=== PATIENT | male | born 1950 | race Caucasian/White ===

== ENCOUNTER 2016-10-07 09:15 | Emergency (ER) | payer MEDICARE, BC ==
--- NOTE | 2016-10-07 10:22 | RAD ---
INDICATION: Right hand pain and swelling. TECHNIQUE: 2 views of the right hand were obtained. FINDINGS: There is diffuse soft tissue swelling which is most prominent along the dorsal aspect of the hand at the level of the metacarpals. There is also soft tissue swelling in the fingers. The bones are normal alignment. No fracture is seen. There is mild to moderate osteoarthritic change in the carpal metacarpal, proximal and distal interphalangeal joints. IMPRESSION: SOFT TISSUE SWELLING.
[2016-10-07 11:33] VITALS: BP 137/80
--- NOTE | 2016-10-07 11:38 | RAD ---
INDICATION: Pain and swelling. COMPARISON: None TECHNIQUE: Duplex interrogation of the right upperextremity was performed. FINDINGS: Deep veins: The visualized jugular, visualized subclavian, axillary, brachial, basilic, cephalic, radial, and ulnar veins are patent. There is normal compressibility, augmentation, and phasic flow. Superficial veins: There are no findings of superficial thrombophlebitis. Soft tissues:There are no soft tissue abnormalities. IMPRESSION: Normal examination. No evidence of deep venous thrombosis
--- NOTE | 2016-10-07 12:40 | UC ---
kareem Smiley Timothy, scribed for Roderick Harrison MD on 10/07/16 at 0949 . Upper Extremity HPI - HPI Summary HPI Summary: Scot Garzon Jr. is a 66 yo male presenting to [facility] with 3/10 RUE hand pain and swelling since last night, denying any trauma. Pt notes Hx of arthritis, but states he has never experienced anything like this before. He is right- handed. He states last night he was unable to bend any of his fingers, and was woken up by the pain. He notes pain was worse last night. He denies any fever, chills, or malaise. He denies any insect bites to his knowledge. He notes he was doing yard work in the past 3 days, trimming bushes for one hour on Friday with a lachelle requiring a squeezing motion. he notes his pain is somewhat alleviated with elevation, and worse without elevation. His MHx includes DVT, gout, arthritis, HTN, HLD, tobacco use. - History of Current Complaint Stated Complaint: RIGHT HAND SWELLING/PAIN Time Seen by Provider: 10/07/16 09:49 Hx Obtained From: Patient Onset/Duration: Sudden Onset, Lasting Hours, Still Present Severity Initially: Moderate Severity Currently: Moderate Pain Intensity: 5 Pain Scale Used: 0-10 Numeric Location Of Pain: Is Discrete @ - RUE hand Character: Aching Associated Signs And Symptoms: Positive: Swelling - Allergies/Home Medications Allergies/Adverse Reactions: Allergies Allergy/AdvReac Type Severity Reaction Status Date / Time Sulfur Allergy Hives Verified 09/27/16 12:25 PMH/Surg Hx/FS Hx/Imm Hx - Additional Past Medical History Additional PMH: gout, arthritis Cardiovascular History: Hypertension, Deep Vein Thrombosis, Other Other Cardiovascular History: HLD - Surgical History Surgical History: None - Family History Known Family History: Positive: Cardiac Disease, Diabetes - Social History Alcohol Use: Weekly Substance Use Type: None Smoking Status (MU): Light Every Day Tobacco Smoker Type: Cigars Amount Used/How Often: 3 cigars per day Household Exposure Type: Cigars Review of Systems Constitutional: Negative Skin: Negative Eyes: Negative ENT: Negative Respiratory: Negative Cardiovascular: Negative Gastrointestinal: Negative Genitourinary: Negative Motor: Negative Neurovascular: Negative Musculoskeletal: Other: - pain and swelling in RUE hand Neurological: Negative Psychological: Negative All Other Systems Reviewed And Are Negative: Yes Physical Exam Triage Information Reviewed: Yes Vital Signs: Initial Vital Signs Temp 98.3 F 10/07/16 09:30 Pulse 73 10/07/16 09:30 Resp 20 10/07/16 09:30 BP 138/76 10/07/16 09:30 Pulse Ox 97 10/07/16 09:30 Vital Signs Reviewed: Yes ENT: Positive: Normal ENT inspection Neck: Positive: Supple, Nontender Respiratory: Positive: Chest non-tender, Lungs clear, Normal breath sounds Cardiovascular: Positive: RRR, No Murmur, Pulses Normal, Brisk Capillary Refill Musculoskeletal: Positive: Edema @ - diffuse to the right hand only which includes palm, dorsum and fingers. There is no increased warmth to the right hand. color appears symmetric to the left hand. he has good capillary refill and strong radial pules. He has no bruising. His ability to make fist with right hand diminished due to swelling. Diagnostics - Radiology RUE hand XR Xray Interpretation: No Acute Changes - IMPRESSION: SOFT TISSUE SWELLING. Radiology Interpretation Completed By: Radiologist RUE hand US Xray Interpretation: No Acute Changes - IMPRESSION: Normal examination. No evidence of deep venous thrombosis Radiology Interpretation Completed By: Radiologist Re-Evaluation - Re-Evaluation First Eval Re-Evaluation Time: 11:47 Change: Unchanged Comment: Discussed imaging results with Pt. Answered questions posed by Pt to best of ability. Upper Extremity Course/Dx - Course Course Of Treatment: Scot Garzon Jr. is a 66 yo male presenting to [facility] with 5/10 pain in his RUE hand since alst night, denying any recent trauma but noting Hx of arthritis and gout. Pt medication list reviewed this visit. His RUE XR suggested soft tissue swelling. His RUE US suggests no DVT. After clinical examination and review of his imaging studies he will be discharged home with appropriate instructions and follow up. Answered questions posed by Pt to best of ability. He has no DVT. He has some diffuse swelling of the hand without cellulitis or increased warmth. I suspect that with the work he was doing with his hands that he oversued the hand and has STS from overuse/ strain. recommend rest, and if swelling worse or anything changes he can follow up with hand dr Dc as referred to. - Differential Dx/Diagnosis Differential Diagnosis/HQI/PQRI: Arthritis, Other - gout Provider Diagnoses: right hand strain Discharge - Discharge Plan Condition: Stable Disposition: HOME Patient Education Materials: Muscle Strain (ED), Edema (ED) Referrals: Bob Floyd MD [Primary Care Provider] - 2 Days Lg Dc MD [Medical Doctor] - If Needed Additional Instructions: Please follow up with your primary care physician regarding your visit to urgent care today, and the orthopedist provided as necessary. Return to urgent care or the emergency department with any new or recurring symptoms. The documentation as recorded by the kareem garg Timothy accurately reflects the service I personally performed and the decisions made by , Roderick Harrison MD.
== END 2016-10-07 11:56 | disposition home or self-care (01) ==
LOC: UCEAST 09:15
DX: S66.911A Strain of unspecified muscle, fascia and tendon at wrist and hand level, right hand, initial encounter (principal); X50.0XXA Overexertion from strenuous movement or load, initial encounter; X50.3XXA Overexertion from repetitive movements, initial encounter; Y93.H2 Activity, gardening and landscaping; Y92.9 Unspecified place or not applicable; Y99.9 Unspecified external cause status; M10.9 Gout, unspecified; I10 Essential (primary) hypertension; Z86.718 Personal history of other venous thrombosis and embolism; E78.5 Hyperlipidemia, unspecified; Z72.0 Tobacco use
CPT/HCPCS: 99212; G0463

== ENCOUNTER 2018-01-21 13:01 | Inpatient (IN) | payer MEDICARE, OTHER ==
[2018-01-21] MEDS ORDERED: NS 0.9% 1000 ML* 1,000 ML IV ONE ×2 (17:50→19:00)
[2018-01-21] MEDS ORDERED: Ondansetron INJ* 2 MG/ML VIAL IV ONE (17:50)
[2018-01-21] MEDS ORDERED: Morphine VIAL* 10 MG/ML 1 ML VIAL IV ONE (17:53)
--- NOTE | 2018-01-21 17:55 | ED ---
Abdominal Pain/Male - HPI Summary HPI Summary: This patient is a 67 year old M presenting to ED with a chief complaint of abdominal pain since 2100 yesterday night. The CC is described as intermittent and sharp, starting off as heartburn. The patient rates the pain 1/10 in severity currently. Symptoms aggravated by nothing. Symptoms alleviated by nothing. Patient reports N/V/D, indigestion, and decreased appetite. Patient denies CP and palpitation. The patient is on chemo for spots on spine. PMHx of multiple myeloma, afib, and blood clot. The patient is not on blood thinners. - History of Current Complaint Chief Complaint: EDNauseaVomitDiarrh Stated Complaint: ABD PAIN Time Seen by Provider: 01/21/18 17:36 Hx Obtained From: Patient Onset/Duration: Sudden Onset, Lasting Days - since 2099 last night, Still Present Timing: Intermittent, Lasting Days Severity Currently: Mild Pain Intensity: 1 Pain Scale Used: 0-10 Numeric Character: Sharp Aggravating Factor(s): Nothing Alleviating Factor(s): Nothing Associated Signs And Symptoms: Positive: Decreased Appetite, Nausea, Vomiting, Diarrhea, Other - indigestion; denies palpitations. Negative: Chest Pain - Allergies/Home Medications Allergies/Adverse Reactions: Allergies Allergy/AdvReac Type Severity Reaction Status Date / Time Sulfa (Sulfonamide Allergy Hives Verified 01/21/18 13:19 Antibiotics) sulfur dioxide Allergy Hives Verified 01/21/18 13:19 Home Medications: Home Medications Allopurinol TAB* [Zyloprim 300 MG TAB*] 300 mg PO DAILY 01/21/18 [History Confirmed 01/21/18] Dexamethasone TAB* [Decadron TAB*] 40 mg PO WEEKLY 01/21/18 [History Confirmed 01/21/18] Lenalidomide (NF) [Revlimid (NF)] 25 mg PO DAILY 01/21/18 [History Confirmed ] Lisinopril TAB* [Prinivil TAB*] 40 mg PO DAILY 01/21/18 [History Confirmed 01/21] Velcade Injection 1 applic IV Q14D 01/21/18 [History Confirmed 01/21/18] amLODIPine TAB* [Norvasc 5 mg TAB*] 2.5 mg PO DAILY 01/21/18 [History Confirmed 01/21/18] PMH/Surg Hx/FS Hx/Imm Hx Endocrine/Hematology History: Denies: Hx Diabetes Cardiovascular History: Reports: Hx Hypertension Denies: Hx Pacemaker/ICD History: Denies: Hx Renal Disease Sensory History: Denies: Hx Hearing Aid Psychiatric History: Denies: Hx Panic Disorder Infectious Disease History: No Infectious Disease History: Denies: Traveled Outside the [place] in Last 30 Days - Family History Known Family History: Positive: Cardiac Disease, Diabetes - Social History Alcohol Use: Weekly Alcohol Amount: every other day Substance Use Type: Reports: None Smoking Status (MU): Light Every Day Tobacco Smoker Type: Cigars Amount Used/How Often: 3 cigars per day Review of Systems Negative: Palpitations, Chest Pain Positive: Abdominal Pain, Vomiting, Diarrhea, Nausea, Other - decreased appetite and indigestion All Other Systems Reviewed And Are Negative: Yes Physical Exam - Summary Physical Exam Summary: GENERAL: Patient is a well-developed and nourished M who is lying comfortable in the stretcher. Patient is not in any acute respiratory distress. HEAD AND FACE: Normocephalic EYES: PERRLA, EOMI x 2. EARS: Hearing grossly intact. MOUTH: Oropharynx within normal limits. NECK: Supple, trachea is midline, no adenopathy, no JVD, no carotid bruit. CHEST: Symmetric, no tenderness at palpation LUNGS: Clear to auscultation bilaterally. No wheezing or crackles. CVS: Tachycardic, regular rhythm, S1 and S2 present, no murmurs or gallops appreciated. ABDOMEN: Soft, non-tender. Bowel sounds are normal. No abdominal abnormal pulsations. EXTREMITIES: Full ROM in all major joints, no cyanosis or clubbing. Bilateral pedal edema. NEURO: Alert and oriented x 3. No acute neurological deficits. Speech is normal and follows commands. SKIN: Dry and warm Triage Information Reviewed: Yes Vital Signs On Initial Exam: Initial Vitals Temp Pulse Resp BP Pulse Ox 98.4 F 77 20 107/69 95 01/21/18 13:16 01/21/18 13:16 01/21/18 13:16 01/21/18 13:16 01/21/18 13:16 Vital Signs Reviewed: Yes Diagnostics - Vital Signs Vital Signs Temp Pulse Resp BP Pulse Ox 01/21/18 17:20 88 22 101/72 99 01/21/18 17:00 114 24 97 01/21/18 16:50 94 27 96/71 98 01/21/18 16:21 107 24 138/54 96 01/21/18 16:18 105 99 01/21/18 13:16 98.4 F 77 20 107/69 95 - Laboratory Result Diagrams: 01/22/18 05:40 01/22/18 05:40 Lab Statement: Any lab studies that have been ordered have been reviewed, and results considered in the medical decision making process. - EKG 1750 Cardiac Rate: Other Rate - afib with RVR EKG Rhythm: Atrial Fibrillation - with RVR Ectopy: PVCs - occasional Re-Evaluation - Re-Evaluation First Eval Re-Evaluation Time: 18:46 Comment: The patient's BP dropped, but he feels fine. He was just given 5mg of Morphine. Patient reports he does not feel light-headed/dizzy. No hx of CHF. Abdominal Pain Fem Course/Dx - Course Assessment/Plan: This patient is a 67 year old M presenting to ED with a chief complaint of abdominal pain since 2100 yesterday night. In the ED course, the patient was given fluids, morphine, and zofran. This patient will be signed out to Dr. Pratt, pending dispo, awaiting CT abd/pel. - Diagnoses Provider Diagnoses: Multiple myeloma, Hypotension, Atrial fibrillation with rapid ventricular response, Chronic renal failure, Gastritis, Elevated troponin Discharge - Sign-Out/Discharge Documenting (check all that apply): Sign-Out Patient Signing out patient TO: Addison Pratt Receiving patient FROM: Dkasha Harden - Discharge Plan Condition: Stable Disposition: ADMITTED TO [facility] - Billing Disposition and Condition Condition: STABLE Disposition: Admitted to [facility] - Attestation Statements Document Initiated by Scribe: Yes Documenting Scribe: Angel Campos Provider For Whom Scribe is Documenting (Include Credential): Daksha Harden MD Scribe Attestation: Angel Smiley, scribed for Daksha Harden MD on 01/23/18 at 0459. Scribe Documentation Reviewed: Yes Provider Attestation: The documentation as recorded by the Angel garg accurately reflects the service I personally performed and the decisions made by me, Daksha Harden MD
[2018-01-21] MEDS ORDERED: Morphine INJ* 4 MG/ML 1 ML SYRINGE (NEW SYRINGE VERSION) ONE (18:12)
[2018-01-21 18:22] LABS: Hematocrit 36 % (42-52); Hemoglobin 11.7 g/dl (14.0-18.0); Mean Corpuscular HGB Conc 33 g/dl (31-36); Mean Corpuscular Hemoglobin 33 pg (27-31); Mean Corpuscular Volume 101 fL (80-94); Mean Platelet Volume 10.4 um3 (7.4-10.4); Platelet Count 29 10^3/ul (150-450); Red Blood Count 3.53 10^6/ul (4.00-5.40); Red Cell Distribution Width 24 % (10.5-15)
[2018-01-21 18:23] LABS: INR 1.14 (0.77-1.02)
[2018-01-21] MEDS ORDERED: Morphine INJ* 4 MG/ML 1 ML SYRINGE (NEW SYRINGE VERSION) IV ONE (18:29)
[2018-01-21 18:35] LABS: EGFR Non-African American 34.3 (>60)
[2018-01-21 19:00] LABS: ABS Basophils 0 10^3/ul (0-0.2); ABS Eosinophils 0 10^3/ul (0-0.6); ABS Lymphocytes 0.3 10^3/ul (1.0-4.8); ABS Monocytes 1.2 10^3/ul (0-0.8); ABS Neutrophils 0.5 10^3/ul (1.5-7.7)
[2018-01-21 19:04] LABS: ABS Basophils 0 10^3/ul (0-0.2); ABS Neutrophils 0.6 10^3/ul (1.5-7.7); Monocytes % 30 % (0-7)
[2018-01-21] MEDS ORDERED: Iodixanol* (CONTRAST) 320 MG/ML 100 ML SDV IV ONE (19:40)
--- NOTE | 2018-01-21 20:13 | RAD ---
EXAM: CT Abdomen and Pelvis With Intravenous Contrast EXAM DATE/TIME: 01/21/2018 7:50 PM CLINICAL HISTORY: 67 years old, male; Pain; Abdominal pain; Localized; Upper TECHNIQUE: Axial computed tomography images of the abdomen and pelvis with intravenous contrast. All CT scans at this facility use at least one of these dose optimization techniques: automated exposure control; mA and/or kV adjustment per patient size (includes targeted exams where dose is matched to clinical indication); or iterative reconstruction. Coronal and sagittal reformatted images were created and reviewed. CONTRAST: 124 ml of VISIPAQUE 320 administered intravenously. COMPARISON: A/P W CT ABD/PEL W 04/04/2014 8:32 AM FINDINGS: Lower thorax: The visualized portions of the lung bases are normal. ABDOMEN: Liver: Normal. No mass. Gallbladder and bile ducts: Normal. No calcified stones. No ductal dilation. Pancreas: Normal. No ductal dilation. Spleen: Normal. No splenomegaly. Adrenals: Soft tissue nodule right adrenal measures 1.9 cm and 69 Hounsfield units (series 2, image 32) previously 1.7 cm. No left adrenal nodules. Kidneys and ureters: Low attenuating left renal cortical focus measures 2.1 cm and does not measures simple fluid (series 2, image 39) previously 1.6 cm. No calculi or pelvocaliectasis. Stomach and bowel: Incompletely distended grossly normal stomach. Normal caliber small bowel. Distal colonic diverticula without adjacent inflammatory changes or associated wall thickening. Appendix: Normal caliber appendix without wall thickening or adjacent inflammation. PELVIS: Bladder: Thin-walled bladder with no focal nodularity, perivesicular stranding, or calcifications. Reproductive: Normal sized prostate. Normal seminal vesicles. ABDOMEN and PELVIS: Intraperitoneal space: Normal. No free air. No significant fluid collection. Bones/joints: The spine demonstrates mild degenerative changes at multiple levels. No fractures. No suspicious bone lesions. Soft tissues: Bilateral fat containing direct inguinal hernias. No stranding. There is a fat-containing umbilical hernia. No stranding. Vasculature: There is moderate atherosclerotic calcification of the coronary arteries. The aorta demonstrates moderate atherosclerotic calcification. Patent IVC. Lymph nodes: Normal. No enlarged lymph nodes. IMPRESSION: 1. No CT findings to correlate with patient's symptomatology. 2. 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 ACR White Paper guidelines (Jesus, et al. JACR 2010; 7(10):754-73) suggest that no follow-up is necessary. 3. Bosniak type II renal cyst. No followup indicated. 4. Bilateral inguinal hernias. No strangulation. To contact [facility] with a general question: Operations Center - [phone] For direct physician to physician contact: Physician Hotline - [phone] [facility] ([facility] Facility ID #[id number])
--- NOTE | 2018-01-21 20:37 | ED ---
Progress - Progress Note Progress Note: Patient was signed out from Dr. Harden upon shift change pending CT and disposition. DIAG: CT CT abdomen and pelvis reveals, per radiologist, 1. No CT findings to correlate with patient's symptomatology. 2. 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 3. Bosniak type II renal cyst. No followup indicated. 4. Bilateral inguinal hernias. No strangulation. ED physician has reviewed this radiology report. Re-Evaluation - Re-Evaluation First Eval Re-Evaluation Time: 18:46 Change: Unchanged Comment: The patient's BP dropped, but he feels fine. He was just given 5mg of Morphine. Patient reports he does not feel light-headed/dizzy. No hx of CHF. Second Eval Re-Evaluation Time: 20:22 Change: Improved Comment: Patient states that he is feeling better and wishes to be discharged Third Eval Re-Evaluation Time: 20:38 Change: Unchanged Comment: Discussed plan of care with patient Course/Dx - Course Course Of Treatment: Patient was signed out from Dr. Harden upon shift change pending CT abdomen and pelvis and disposition. CT abdomen and pelvis reveals, per radiologist, 1. No CT findings to correlate with patient's symptomatology. 2. 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 3. Bosniak type II renal cyst. No followup indicated. 4. Bilateral inguinal hernias. No strangulation. ED physician has reviewed this radiology report. Consult with Dr. Daniel ( oncology) at 2029. He recommends the patient be admitted for further evaluation. Consult with Dr. Machado (hospitalist) at 2040. She agrees to admit patient for further evaluation. Patient is agreeable with this plan. - Diagnoses Provider Diagnoses: Multiple myeloma, Hypotension, Atrial fibrillation with rapid ventricular response, Chronic renal failure, Gastritis, Elevated troponin - Provider Notifications Discussed Care Of Patient With: Nito Daniel Time Discussed With Above Provider: 20:30 Instructed by Provider To: Other - Consult with Dr. Daniel (oncology) at 2029. He recommends the patient be admitted for further evaluation. Consult with Dr. Machado (hospitalist) at 2040. She agrees to admit patient for further evaluation. Discharge - Sign-Out/Discharge Documenting (check all that apply): Patient Departure - Admit to [facility], Receiving Sign-Out Receiving patient FROM: Daksha Harden - Upon shift change pending CT - Discharge Plan Condition: Stable Disposition: ADMITTED TO [facility] Referrals: Bob Floyd MD [Primary Care Provider] - - Billing Disposition and Condition Condition: STABLE Disposition: Admitted to [facility] - Attestation Statements Document Initiated by Scribe: Yes Documenting Scribe: Erin Escoto Provider For Whom Scribe is Documenting (Include Credential): Addison Pratt MD Scribe Attestation: I, Erin Escoto, scribed for Addison Pratt MD on 01/21/18 at 2127. Scribe Documentation Reviewed: Yes Provider Attestation: The documentation as recorded by the [email or web address] accurately reflects the service I personally performed and the decisions made by me, Addison Pratt MD
[2018-01-21] MEDS ORDERED: Diltiazem IV* 5 MG/ML 5 ML VIAL (for loading dose/IV Push) (25 MG) IV SLOW PU ONE (20:46)
[2018-01-21] MEDS ORDERED: Ondansetron INJ* 2 MG/ML VIAL IV PRN (21:27)
[2018-01-21] MEDS ORDERED: NS 0.9% 1000 ML* 1,000 ML IV SCH (21:30)
[2018-01-21] MEDS ORDERED: Digoxin IV* 0.5 MG/2 ML AMP (0.25 MG/ML) IV SLOW PU ONE (21:33)
[2018-01-21] MEDS ORDERED: Morphine VIAL* 4 MG/ML VIAL (1 ml vial) IV PRN (21:35)
[2018-01-21] MEDS: NS 0.9% 1000 ML* 2,000 ML IV ONE (21:44)
--- NOTE | 2018-01-21 22:20 | RAD ---
EXAM: US Retroperitoneal Limited, Kidneys. EXAM DATE/TIME: 01/21/2018 10:04 PM CLINICAL HISTORY: 67 years old, male; Abnormal findings; Abnormal lab test; Abnormal kidney function lab tests; Additional info: Arf TECHNIQUE: Real-time ultrasound of the retroperitoneum with image documentation. Examination was focused on the kidneys. COMPARISON: A/P W CT ABD/PEL W 01/21/2018 7:47 PM FINDINGS: Right kidney: Right kidney measures 10.6 x 6.0 x 5.8 cm (193 cc). Anechoic focus right superior pole measures 0.8 x 0.8 x 0.6 cm. No calculi or pelvocaliectasis. Left kidney: Left kidney measures 11.8 x 6.4 x 5.4 cm (213 cc). Anechoic focus in the superior pole measures 2.0 x 2.0 x 2.1 cm. No calculi or pelvocaliectasis. IMPRESSION: Bilateral simple renal cysts. No followup indicated. No additional findings to correlate with patient's symptomatology. To contact [facility] with a general question: [facility] - [phone] For direct physician to physician contact: Physician Hotline - [phone] [facility] ([facility] Facility ID #[id number])
[2018-01-21] MEDS: cefTRIAXone(*) 1 GM in NS 0.9% 50 ML* 50 ML IVPB SCH (23:22)
[2018-01-21] MEDS: metroNIDAZOLE IV 500 MG/100ML* 500 MG/100 ML BAG IVPB SCH (23:28)
[2018-01-22 00:20] LABS: Urine Appearance Clear; Urine Blood 1+ (Negative); Urine Color Yellow; Urine Ketones Negative (Negative); Urine Protein Negative (Negative); Urine Red Blood Cell Trace(0-2/hpf) (Absent); Urine Specific Gravity 1.058 (1.010-1.030); Urine Urobilinogen Negative (Negative); Urine White Blood Cell Absent (Absent)
--- NOTE | 2018-01-22 00:27 | HP ---
CC: Dr. Bob Floyd; Dr. Alvarez; Dr. Daniel * HISTORY AND PHYSICAL: DATE OF ADMISSION: 01/21/18 PRIMARY CARE PROVIDER: Dr. Bob Floyd. ATTENDING PHYSICIAN WHILE IN THE HOSPITAL: Dr. Gaby Machado * (report dictated by Demetrio Kang NP) CHIEF COMPLAINT: 1. Lower abdominal cramping. 2. Nausea, vomiting, diarrhea. HISTORY OF PRESENT ILLNESS: Mr. Garzon is a 67-year-old male patient, who is undergoing active chemotherapy for multiple myeloma. He also carries a history of hypertension, hyperlipidemia, and gout. He has a history of mild-to- moderate aortic stenosis. He has had a history of an irregular heartbeat previously, but it was irregular heartbeats with PVCs, never atrial fibrillation. He is coming into the ED today. He says, this morning he woke up , he was having lower abdominal cramping, burning discomfort in the epigastric area going up into his esophagus and he has also noted that anytime he goes to eat, he has a little bit more pain. He has been having intermittent nausea and vomiting with diarrhea. There have been no reports of tarry stool, coffee- ground emesis. No reports of cecily blood in the vomit or in the stool. He says he has not been on any recent antibiotics. He says recently he had his injection for his chemo. He denied having any chest pain. No shortness of breath. He admitted to lower abdominal cramping that is coming intermittently. He denies feeling anymore distended. He says he does have known 2 hernias in his groin, which have not been bothering him at all. He was concerned because he just kept having nausea and vomiting and could not keep anything down and given the recent chemo, he decided to come into the ED. He denies any recent flu-like symptoms. Denies having any URI symptoms. He denied having any noted fevers or chills at home. He came into the ED. It was noted that he was neutropenic. He appeared to be in new-onset AFib. In addition to this, he appeared to be in acute renal failure. Because of these findings, we were asked to evaluate for admission. PAST MEDICAL HISTORY: Significant for: 1. Multiple myeloma. 2. Hypertension. 3. Hyperlipidemia. 4. History of gout. 5. History of hdro-[id number] aortic stenosis. 6. History of an irregular heartbeat with associated PVCs. PAST SURGICAL HISTORY: Denied. MEDICATIONS: Home meds include: 1. Revlimid 25 mg daily. 2. Velcade injection, 1 injection q.14 days. 3. Decadron 40 mg weekly. 4. Norvasc 2.5 mg daily. 5. Zocor 20 mg p.o. q.p.m. 6. Lisinopril 40 mg daily. 7. Allopurinol 300 mg p.o. daily. ALLERGIES TO MEDICATIONS: Include SULFA. FAMILY HISTORY: His mother had high blood pressure. Father had a history of CHF and diabetes. SOCIAL HISTORY: He does smoke 2 cigars a day. Occasionally drinks alcohol. He lives alone. Surrogate decision maker is his sister. REVIEW OF SYSTEMS: There is no documented fever. He denied any significant weight change to me. He denies having any double vision. There was no ear discharge. He denied having any rhinorrhea. No sore throat. No thyroid enlargement. Denies having any chest pain. There is no orthopnea. He denies having any nocturnal dyspnea. There is a lower abdominal cramping and discomfort from my HPI. He did admit to nausea, vomiting, and diarrhea. There has been no dysuria, no frequency. No seizure, no loss of consciousness. No pruritus and no skin ulcerations. Review of 14 systems completed, all others negative. PHYSICAL EXAMINATION GENERAL: At this time Mr. Garzon is a 67-year-old male patient. He is sitting in the ED stretcher. He does not appear to be in any acute distress. He appears to be morbidly obese. He appears to be well-nourished, well- developed. VITAL SIGNS: Blood pressure 92/58, pulse 125, respirations 20, O2 sat 98%, and temperature 98.4. HEENT: Head atraumatic and normocephalic. Eyes: EOMs are intact. Sclerae anicteric and not pale. NECK: Supple. Throat: Oral mucosa appears to be dry. No oropharyngeal erythema. LUNGS: Clear to auscultation bilaterally. HEART: Sounds S1 and S2. He had an irregularly irregular rate. He did have a grade 2 to 3 systolic murmur in the aortic listening area, otherwise benign. ABDOMEN: Soft. It was nontender on my exam. Bowel sounds were hyperactive. EXTREMITIES: Pulses were 2+ throughout. Moving all 4 extremities with 5/5 strength. He had no peripheral edema. NEUROLOGIC: He is awake, he is alert, he is oriented x3. His tongue is midline. His ambulance paramedic are equal. He had no gross focal deficits. His skin was intact. DIAGNOSTIC STUDIES/LAB DATA: WBC of 2.0; RBC of 3.53; hemoglobin 11.7, hematocrit 36; his baseline hemoglobin is right around 10; his platelet count was 29,000; neutrophils were 0.5. INR was 1.14, PTT of 25.8. His sodium was 138; potassium was 4; chloride 107; bicarb 20; BUN 42; creatinine 1.96, his baseline creatinine is 1.2; his glucose 131; lactate 2.2; calcium 9.3; mag was 2.0. Total bili 1.5, AST 6, ALT 13, alk phos 57. Ammonia was 28. Troponin was 0.04. CRP was 52. Lipase 12. Urine pending. He had an abdominal and pelvis CT obtained today which revealed, impression: No CT findings to correlate the patient's symptomatology. 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 Bosniak type 2 renal cyst. Bilateral inguinal hernias. No strangulation. He had an EKG obtained today as well which revealed to me that this patient appears to have atrial fibrillation with a rate of 126 with PVCs. Reviewing previous EKGs from 4 years ago, he had a normal sinus rhythm with PVCs, but no AFib that I could see. He had an echo on 12/01/17. EF was 55% to 60%. Mild-to -moderate aortic stenosis was noted. Old medical records were reviewed. ASSESSMENT AND PLAN: Mr. Garzon is a 67-year-old male patient coming into the ED today with complaints of nausea, vomiting, diarrhea, and abdominal cramping. On evaluation, found to be in acute renal failure. He will be admitted under inpatient status for: 1. Abdominal discomfort, etiology is unclear. He may have gastroenteritis, but in the setting of him having neutropenia, I am rodrigues culturing him. I am getting stool cultures and ova and parasite. Because he is neutropenic, I am going to put him empirically on antibiotics as he has a high risk for translocation of bacteria from gut in the setting of this illness. I will hydrate him aggressively and will repeat that lactate and continue to follow him clinically. He is currently not having any abdominal pain now. I will also check him for the flu. 2. Multiple myeloma with neutropenia on neutropenic precautions. I am monitoring for any fever. If he spikes a fever, I will broaden antibiotics to cefepime. We will hold his chemo regimen and Oncology will be following the patient tomorrow. 3. Multiple myeloma. He just received his injection on Friday. We will hold his meds in the setting of acute illness. 4. Atrial fibrillation. This appears to be a new diagnosis for the patient. He did receive 10 mg of diltiazem here in the ED. I am going to give him 0.5 mg a day. His blood pressure is tenuous; it is in the 80s to 90s systolic. I am going to hydrate him aggressively. I am holding on anticoagulation given his platelet count to 29,000. I touched base with Cardiology and they are in agreement with holding on heparin as it is contraindicated and platelets are low. Recommended repeating the echo, treating his underlying dehydration, and continuing to follow. 5. Elevated troponin. I do note that there is mild elevation of troponin probably secondary to demand ischemia. He is not having any active cardiac symptoms. We will trend these. Repeat EKG in the morning and trend his troponins and getting an echo. 6. Hypertension. He is hypotensive currently. We will hold his blood pressure meds. 7. Hyperlipidemia. Holding his statin. 8. Gout. Holding his allopurinol in the setting of his acute renal failure. 9. Acute renal failure. It is probably prerenal. There may be a component of acute tubular necrosis. I am sending off a FENa. We are getting a renal ultrasound and bladder scanning the patient. We will continue to hydrate and monitor this closely. If it is not improved, we will consider touching base with Nephrology. I am holding his nephrotoxic agents. 10. DVT prophylaxis. Because of the low platelets, I am just putting him on SCDs. 11. Lactic acidosis. Lactate was mildly elevated at 2.2. We are repeating this after hydration and rodrigues culturing. 12. Code status. Full code. 13. Fluids, electrolytes, and nutrition. Clear liquid diet. TIME SPENT: On the admission was approximately 70 minutes, greater than half that time was spent [id number] with the patient obtaining my history and physical, other half the time spent going over the plan of care with the patient and implementing the plan of care. I did discuss the plan of care with my attending Dr. Machado; she is in agreement. DEMETRIO KANG NP [id number]/CPS #: [id number] PARKER
[2018-01-22 06:05] LABS: EGFR Non-African American 52.7 (>60)
[2018-01-22 06:14] LABS: ABS Basophils 0 10^3/ul (0-0.2); ABS Eosinophils 0 10^3/ul (0-0.6); ABS Lymphocytes 0.4 10^3/ul (1.0-4.8); ABS Monocytes 0.8 10^3/ul (0-0.8); ABS Nucleated RBC 0 10^3/ul
[2018-01-22 06:19] LABS: Hematocrit 29 % (42-52); Hemoglobin 9.6 g/dl (14.0-18.0); Mean Corpuscular HGB Conc 33 g/dl (31-36); Mean Corpuscular Hemoglobin 34 pg (27-31); Mean Corpuscular Volume 102 fL (80-94); Mean Platelet Volume 9.3 um3 (7.4-10.4); Platelet Count 18 10^3/ul (150-450); Red Blood Count 2.85 10^6/ul (4.00-5.40); Red Cell Distribution Width 24 % (10.5-15); White Blood Count 1.6 10^3/ul (3.5-10.8)
[2018-01-22 06:21] LABS: ABS Neutrophils 0.4 10^3/ul (1.5-7.7); Monocytes % 42 % (0-7)
[2018-01-22 06:22] LABS: ABS Basophils 0 10^3/ul (0-0.2); ABS Neutrophils 0.3 10^3/ul (1.5-7.7)
[2018-01-22] MEDS: metroNIDAZOLE IV 500 MG/100ML* 500 MG/100 ML BAG IVPB SCH ×3 (06:44→22:23)
--- NOTE | 2018-01-22 08:11 | RAD ---
Indication: Atrial fibrillation. Neutropenia. Gastroenteritis. History of multiple myeloma. Comparison: CT abdomen of the same date. May 15, 2016 CT from PET/CT. Technique: Upright AP 20 to 33 hours Report: Mild prominence of the interstitial markings. No alveolar consolidation, focal pulmonary lesion, pleural effusion, pneumothorax. Cardiomegaly. Unremarkable central pulmonary vasculature. Negative for free air beneath the diaphragm. No conspicuous focal osseous lesions evident. IMPRESSION: #. Cardiomegaly and stigmata of probable obstructive lung disease. No acute cardiopulmonary process evident. R1NF
[2018-01-22] MEDS ORDERED: Digoxin IV* 0.5 MG/2 ML AMP (0.25 MG/ML) IV SLOW PU ONE (09:26)
--- NOTE | 2018-01-22 10:18 | ECHO ---
Patient: [facility] Rec#: [id number] : 1950 Date: 01/22/2018 Age: 67y Height: 162.56 cm / 64.0 in Weight: 98.88 kg / 217.9 lbs Sex: M BSA: 2.03 Room#: ICU 1 Admit Date#: 01/21/2018 Type: Inpatient Referring: Demetrio Kang NP Reading: Gurwinder Lane MD Fishing Vessel Deckhand: Minna Murphy,RDCS,RDMS CC: Bob Floyd MD Transthoracic Echocardiogram Indication: MURMUR BP: 116/66 HR: 93 Rhythm: A-Fib Findings History: , HTN, HLD, PVCs, multiple myeloma. Technical Comments: The study quality is fair. Left Ventricle: The left ventricular chamber size is normal. Mild concentric left ventricular hypertrophy is observed.Suboptimal imaging limits the wall thickness evaluaton. The mid septum measures 11 mm c/w mild LVH. The upper septum measures 14 mm c/w sigmoid septum. There is a focal wall motion abnormality present.Relative hypokinesis of the inferior /posterior segments. There is mildly decreased left ventricular systolic function. The estimated ejection fraction is 45-50%. The assessment of diastolic function is non-diagnostic. Left Atrium: The left atrium is mildly dilated. Right Ventricle: The right ventricular chamber size and systolic function are within normal limits. Right Atrium: The right atrium is slightly dilated. Aortic Valve: The aortic valve structure is not well visualized. The aortic valve leaflets are moderately thickened. There is aortic annular calcification. There is no evidence of aortic regurgitation. There is moderate aortic stenosis.Findings c/w low gradient aortic stenosis. The mean gradient of the aortic valve is 16 mmHg. The aortic valve area, by VTI's, is calculated at 1.2 cm2. Mitral Valve: There is mitral annular calcification. The mitral valve leaflets are mildly thickened. There is a trace of mitral regurgitation. There is no evidence of mitral stenosis. Tricuspid Valve: The tricuspid valve leaflets are normal. There is mild tricuspid regurgitation. There is evidence of borderline pulmonary hypertension. Pulmonic Valve: The pulmonic valve structure is not well visualized. There is a trace pulmonic regurgitation. Pericardium: There is no significant pericardial effusion. Aorta: The ascending aorta is not well visualized. There is no dilatation of the aortic arch. The aortic root is normal in size. Pulmonary Artery: The main pulmonary artery is not well visualized. Venous: The inferior vena cava appears normal in size. There is less than 50% respiratory change in the inferior vena cava dimension. Conclusions Mild concentric left ventricular hypertrophy is observed. Suboptimal imaging limits the wall thickness evaluaton. The mid septum measures 11 mm c/w mild LVH. The upper septum measures 14 mm c/w sigmoid septum. There is Relative hypokinesis of the inferior /posterior segments. There is mildly decreased left ventricular systolic function. The estimated ejection fraction is 45-50%. The left atrium is mildly dilated. There is moderate aortic stenosis. Findings c/w low gradient aortic stenosis. The aortic valve area, by VTI's, is calculated at 1.2 cm2. Average DI by velocity .32 There is mild tricuspid regurgitation. There is evidence of borderline pulmonary hypertension. Interval decrease in EF from 55-60% and decrease in PASP from 45 c/t 11/2017 Measurements Name Value Normal Range RVIDd (AP) 2D 3 cm (0.9 - 2.6) RVDdMajor (2D) 3.2 cm (2.2 - 4.4) RAd ISD 4CH 3.8 cm (3.4 - 4.9) RA (A4C)W 4.8 cm (2.9 - 4.6) IVSd (2D) 1.4 cm (0.6 - 1) LVIDd (2D) 4.8 cm (3.6 - 5.4) LVIDs (2D) 4.2 cm - LV FS (2D) 13 % (25 - 45) Aortic Annulus 2.1 cm (1.4 - 2.6) Ao root diameter (2D) 3.1 cm (2.1 - 3.5) Aortic arch 3.4 cm (1.8 - 3.4) LA dimension (AP) 2D 4.6 cm (2.3 - 3.8) LAd ISD 4CH 5 cm (2.9 - 5.3) LA ISD 4CH W 4.3 cm (2.5 - 4.5) Name Value Normal Range LA ESV SP 4CH (A/L) 75.71 ml - LA ESV SP 2CH (A/L) 61.36 ml - LA ESV BP (A/L) 69.02 ml - LA ESV BP (A/L) index 34 ml/m2 - LA ESV SP 4CH (MOD) 68.63 ml - LA ESV SP 2CH (MOD) 58.32 ml - Name Value Normal Range MV E-wave Vmax 1.2 m/sec - MV deceleration time 210 msec - Name Value Normal Range AV Vmax 2.6 m/sec - AV VTI 52 cm - AV peak gradient 27 mmHg - AV mean gradient 16 mmHg - LVOT diameter 2 cm - LVOT Vmax 0.8 m/sec - LVOT VTI 19.5 cm - LVOT peak gradient 2.6 mmHg - LVOT mean gradient 1.5 mmHg - DOI (VTI) 0.4 ratio - INDIGO (continuity Vmax) 1 cm2 - INDIGO (continuity VTI) 1.2 cm2 - FARHAT Vmax 0.7 m/sec - Name Value Normal Range MV Vmax 1.2 m/sec - MV VTI 30 cm - MV peak gradient 6 mmHg - MV mean gradient 2.6 mmHg - MV PHT 104 msec - MVA (PHT) 2.1 cm2 - MVA (continuity VTI) 2 cm2 - Name Value Normal Range TR Vmax 2.5 m/sec - TR peak gradient 25 mmHg - RAP 8 mmHg - RVSP 33 mmHg - IVC diameter 1.6 cm - Name Value Normal Range PV Vmax 0.7 m/sec - PV peak gradient 2 mmHg -
--- NOTE | 2018-01-22 11:10 | PN ---
Progress Note - Progress Note Date of Service: 01/22/18 SOAP: Subjective: [Admitted overnight with acute onset diarrhea and rapid afib. He reports that he is feeling much better this am. Still in afib, but rate controlled. No nausea or vomiting overnight, diarrhea has seemed to slow. No abdominal cramping or pain.] Objective: [ Laboratory Results - last 24 hr 01/21/18 01/21/18 01/21/18 18:05 18:05 18:05 WBC 2.0 L RBC 3.53 L Hgb 11.7 L Hct 36 L MCV 101 H MCH 33 H MCHC 33 RDW 24 H Plt Count 29 L MPV 10.4 Neut % (Auto) Not Reportable Lymph % (Auto) Not Reportable [place] % (Auto) Not Reportable Eos % (Auto) Not Reportable Baso % (Auto) Not Reportable Absolute Neuts (auto) 0.5 L* Absolute Lymphs (auto) 0.3 L Absolute Monos (auto) 1.2 H Absolute Eos (auto) 0 Absolute Basos (auto) 0 Absolute Nucleated RBC Not Reportable Immature Gran % 11 H Neutrophils % 27 L Band Neutrophils % 6 Lymphocytes % 31 Reactive Lymphs % Monocytes % 30 H Eosinophils % 1 Basophils % 0 Metamyelocytes % 5 H Myelocytes % Nucleated RBC % Not Reportable Abs Neuts (Manual) 0.6 L* Abs Lymphs (Manual) 0.7 L Abs Monocytes (Manual) 0.6 Absolute Eos (Manual) 0 Abs Basophils (Manual) 0 Normal RBC Morphology Normal Macrocytosis INR (Anticoag Therapy) APTT Sodium 138 Potassium 4.0 Chloride 107 Carbon Dioxide 20 L Anion Gap 11 BUN 42 H Creatinine 1.96 H Est GFR ( Amer) 41.5 Est GFR (Non-Af Amer) 34.3 BUN/Creatinine Ratio 21.4 H Glucose 131 H Lactic Acid 2.2 H* Calcium 9.3 Magnesium 2.0 Total Bilirubin 1.50 H AST 6 L ALT 13 Alkaline Phosphatase 57 Ammonia Troponin I 0.04 H* C-Reactive Protein 52.51 H Total Protein 6.3 L Albumin 4.1 Globulin 2.2 Albumin/Globulin Ratio 1.9 Lipase 12 TSH Cortisol 28.88 Urine Color Urine Appearance Urine pH Ur Specific [place] Urine Protein Urine Ketones Urine Blood Urine Nitrate Urine Bilirubin Urine Urobilinogen Ur Leukocyte Esterase Urine WBC (Auto) Urine RBC (Auto) Ur Squamous Epith Cells Urine Bacteria Urine Glucose Digoxin Influenza A (Rapid) Influenza B (Rapid) Blood Type Antibody Screen 01/21/18 01/21/18 01/21/18 18:05 18:05 18:05 WBC RBC Hgb Hct MCV MCH MCHC RDW Plt Count MPV Neut % (Auto) Lymph % (Auto) [place] % (Auto) Eos % (Auto) Baso % (Auto) Absolute Neuts (auto) Absolute Lymphs (auto) Absolute Monos (auto) Absolute Eos (auto) Absolute Basos (auto) Absolute Nucleated RBC Immature Gran % Neutrophils % Band Neutrophils % Lymphocytes % Reactive Lymphs % Monocytes % Eosinophils % Basophils % Metamyelocytes % Myelocytes % Nucleated RBC % Abs Neuts (Manual) Abs Lymphs (Manual) Abs Monocytes (Manual) Absolute Eos (Manual) Abs Basophils (Manual) Normal RBC Morphology Macrocytosis INR (Anticoag Therapy) 1.14 H APTT 25.8 L Sodium Potassium Chloride Carbon Dioxide Anion Gap BUN Creatinine Est GFR ( Amer) Est GFR (Non-Af Amer) BUN/Creatinine Ratio Glucose Lactic Acid Calcium Magnesium Total Bilirubin AST ALT Alkaline Phosphatase Ammonia 28 Troponin I C-Reactive Protein Total Protein Albumin Globulin Albumin/Globulin Ratio Lipase TSH 1.70 Cortisol Cancelled Urine Color Urine Appearance Urine pH Ur Specific [place] Urine Protein Urine Ketones Urine Blood Urine Nitrate Urine Bilirubin Urine Urobilinogen Ur Leukocyte Esterase Urine WBC (Auto) Urine RBC (Auto) Ur Squamous Epith Cells Urine Bacteria Urine Glucose Digoxin < 0.3 L Influenza A (Rapid) Influenza B (Rapid) Blood Type Antibody Screen 01/21/18 01/21/18 01/21/18 22:10 22:10 23:27 WBC RBC Hgb Hct MCV MCH MCHC RDW Plt Count MPV Neut % (Auto) Lymph % (Auto) [place] % (Auto) Eos % (Auto) Baso % (Auto) Absolute Neuts (auto) Absolute Lymphs (auto) Absolute Monos (auto) Absolute Eos (auto) Absolute Basos (auto) Absolute Nucleated RBC Immature Gran % Neutrophils % Band Neutrophils % Lymphocytes % Reactive Lymphs % Monocytes % Eosinophils % Basophils % Metamyelocytes % Myelocytes % Nucleated RBC % Abs Neuts (Manual) Abs Lymphs (Manual) Abs Monocytes (Manual) Absolute Eos (Manual) Abs Basophils (Manual) Normal RBC Morphology Macrocytosis INR (Anticoag Therapy) APTT Sodium Potassium Chloride Carbon Dioxide Anion Gap BUN Creatinine Est GFR ( Amer) Est GFR (Non-Af Amer) BUN/Creatinine Ratio Glucose Lactic Acid 1.2 Calcium Magnesium Total Bilirubin AST ALT Alkaline Phosphatase Ammonia Troponin I 0.04 H* C-Reactive Protein Total Protein Albumin Globulin Albumin/Globulin Ratio Lipase TSH Cortisol Urine Color Urine Appearance Urine pH Ur Specific [place] Urine Protein Urine Ketones Urine Blood Urine Nitrate Urine Bilirubin Urine Urobilinogen Ur Leukocyte Esterase Urine WBC (Auto) Urine RBC (Auto) Ur Squamous Epith Cells Urine Bacteria Urine Glucose Digoxin Influenza A (Rapid) Negative Influenza B (Rapid) Negative Blood Type Antibody Screen 01/22/18 01/22/18 01/22/18 00:01 05:40 05:40 WBC 1.6 L RBC 2.85 L Hgb 9.6 L Hct 29 L MCV 102 H MCH 34 H MCHC 33 RDW 24 H Plt Count 18 L* MPV 9.3 Neut % (Auto) Not Reportable Lymph % (Auto) Not Reportable [place] % (Auto) Not Reportable Eos % (Auto) Not Reportable Baso % (Auto) Not Reportable Absolute Neuts (auto) 0.4 L* Absolute Lymphs (auto) 0.4 L Absolute Monos (auto) 0.8 Absolute Eos (auto) 0 Absolute Basos (auto) 0 Absolute Nucleated RBC 0 Immature Gran % 11 H Neutrophils % 16 L Band Neutrophils % 9 H Lymphocytes % 30 Reactive Lymphs % 1 Monocytes % 42 H Eosinophils % Basophils % Metamyelocytes % Myelocytes % 2 H Nucleated RBC % Not Reportable Abs Neuts (Manual) 0.3 L* Abs Lymphs (Manual) 0.5 L Abs Monocytes (Manual) 0.7 Absolute Eos (Manual) 0 Abs Basophils (Manual) 0 Normal RBC Morphology Not Reportable Macrocytosis 1+ INR (Anticoag Therapy) APTT Sodium 137 Potassium 3.9 Chloride 116 H Carbon Dioxide 18 L Anion Gap 3 BUN 30 H Creatinine 1.35 H Est GFR ( Amer) 63.8 Est GFR (Non-Af Amer) 52.7 BUN/Creatinine Ratio 22.2 H Glucose 104 H Lactic Acid Calcium 7.9 L Magnesium Total Bilirubin AST ALT Alkaline Phosphatase Ammonia Troponin I C-Reactive Protein Total Protein Albumin Globulin Albumin/Globulin Ratio Lipase TSH Cortisol Urine Color Yellow Urine Appearance Clear Urine pH 5.0 Ur Specific [place] 1.058 H Urine Protein Negative Urine Ketones Negative Urine Blood 1+ A Urine Nitrate Negative Urine Bilirubin Negative Urine Urobilinogen Negative Ur Leukocyte Esterase Negative Urine WBC (Auto) Absent Urine RBC (Auto) Trace(0-2/hpf) Ur Squamous Epith Cells Present A Urine Bacteria Absent Urine Glucose Negative Digoxin Cancelled Influenza A (Rapid) Influenza B (Rapid) Blood Type Antibody Screen 01/22/18 06:49 WBC RBC Hgb Hct MCV MCH MCHC RDW Plt Count MPV Neut % (Auto) Lymph % (Auto) [place] % (Auto) Eos % (Auto) Baso % (Auto) Absolute Neuts (auto) Absolute Lymphs (auto) Absolute Monos (auto) Absolute Eos (auto) Absolute Basos (auto) Absolute Nucleated RBC Immature Gran % Neutrophils % Band Neutrophils % Lymphocytes % Reactive Lymphs % Monocytes % Eosinophils % Basophils % Metamyelocytes % Myelocytes % Nucleated RBC % Abs Neuts (Manual) Abs Lymphs (Manual) Abs Monocytes (Manual) Absolute Eos (Manual) Abs Basophils (Manual) Normal RBC Morphology Macrocytosis INR (Anticoag Therapy) APTT Sodium Potassium Chloride Carbon Dioxide Anion Gap BUN Creatinine Est GFR ( Amer) Est GFR (Non-Af Amer) BUN/Creatinine Ratio Glucose Lactic Acid Calcium Magnesium Total Bilirubin AST ALT Alkaline Phosphatase Ammonia Troponin I C-Reactive Protein Total Protein Albumin Globulin Albumin/Globulin Ratio Lipase TSH Cortisol Urine Color Urine Appearance Urine pH Ur Specific [place] Urine Protein Urine Ketones Urine Blood Urine Nitrate Urine Bilirubin Urine Urobilinogen Ur Leukocyte Esterase Urine WBC (Auto) Urine RBC (Auto) Ur Squamous Epith Cells Urine Bacteria Urine Glucose Digoxin Influenza A (Rapid) Influenza B (Rapid) Blood Type A Positive Antibody Screen Negative Metronidazole/Sodium Chloride (Flagyl 500 Mg Ivpb*) 500 mg in 100 mls @ 100 mls /hr IVPB Q8H [facility] Last Admin: 01/22/18 06:44 Dose: 100 mls/hr Ceftriaxone Sodium 1 gm/ (Sodium Chloride) 50 mls @ 200 mls/hr IVPB Q24H [facility] Last Admin: 01/21/18 23:22 Dose: 200 mls/hr Metoprolol Succinate (Toprol Xl Tab*) 25 mg PO DAILY [facility] Morphine Sulfate (Morphine Vial*) 2 mg IV Q2H PRN PRN Reason: PAIN Ondansetron HCl (Zofran Inj*) 4 mg IV Q6H PRN PRN Reason: NAUSEA Vital Signs: Temp Pulse Resp BP Pulse Ox 97.9 F 91 15 124/84 96 01/22/18 08:00 01/22/18 11:00 01/22/18 08:15 01/22/18 08:15 01/22/18 08:15 Exam: Gen: 67 yo male in NAD accompanied by his sister HEENT: MMM Resp: lungs CTA, no w/c/r CV: irregular rhythm, no m/r/g Abd: soft, nonTTP, bowel sounds presented Ext: no edema] Assessment: [67 yo male with multiple myeloma who presented yesterday with acute onset of n/ v/d with rapid atrial fibrillation and pancytopenia. Plan: [1. Acute gastroenteritis - CT scan negative - symptoms likely due to a viral gastroenteritis, but will cont abx for gut esteban while he is neutropenic 2. Rapid atrial fibrillation - now rate controlled, still in afib - h/o afib per patient - anticoagulation contraindicated due to thrombocytopenia - start metoprolol - echocardiogram shows some subtle wall motion abnormality which seems to be new when compared to prior - could consider stress test, but if cath were indicated unable to be stented due to antiplatelet needs but he has been platelets have been consistently less than 50K 3. BILLY - secondary to GI loss - cont IVF and replete electrolytes as necessary 4. Multiple myeloma - C4D3 RVD - hold revlimid at this time, resume when ANC>1000 Dispo: transfer from ICU to telemetry unit. Probable dc home tomorrow]
[2018-01-22] MEDS: Metoprolol Succinate XL TAB* 25 MG PO SCH (11:51)
--- NOTE | 2018-01-22 13:56 | CONS ---
CC: Dr. Floyd; Dr. Lane; Dr. Franks; Dr. Daniel CARDIOLOGY CONSULTATION: DATE OF CONSULT: 01/22/18 REASON FOR EVALUATION: Atrial fibrillation. HISTORY OF PRESENT ILLNESS: This is a very pleasant gentleman with multiple myeloma and amyloid who is undergoing chemotherapy. He says he has been on chemotherapy for about 6 months. He said yesterday he developed diarrhea all day long and abdominal pain and burning sensation in his epigastric area and was somewhat worse after eating. He denied nausea and vomiting today, but apparently told the admitting doctor he had some intermittent nausea and vomiting. He denied any shortness of breath or rapid heart rates. He came to the emergency room, was found to be in AFib with a rapid ventricular response and mildly relatively hypotensive. He was given IV fluids and IV digoxin with slowing of his heart rate. It also appears he was given IV diltiazem downstairs as well. He was given IV fluids. He was admitted to the ICU. Reports that he is feeling today. He has had no further diarrhea. No abdominal pain. His blood pressures are better and he is still not aware of a racing heartbeat. His heart rates are in the low 100s at this point. He denies any previous heart problems except for PVCs noted in the years past. He denies knowing about a murmur, but had an echo on 12/01/17, which revealed an EF of 55% to 60% and a [id number] . He has a history of caffeine use. He drinks a half a bottle of cola a day, but had been drinking a 6 pack of cola 12 or 13 years ago. He says he has 3 or 4 beers on the weekends. PAST MEDICAL HISTORY: Other past medical history includes obesity, hypertension , mild renal insufficiency, multiple myeloma. He denies hyperlipidemia. He denies previous AFib or rheumatic heart disease or coronary artery disease. He has a history of gout. Chart lists hyperlipidemia. PAST SURGICAL HISTORY: Denies any past surgical history. MEDICATIONS: As an outpatient include: 1. Revlimid 25 mg a day. 2. Velcade 1 IV dose q.14 days. 3. Dexamethasone 40 mg weekly. 4. Amlodipine 2.5 mg daily. 5. Simvastatin 20 mg a day. 6. Lisinopril 40 mg a day. 7. Allopurinol 300 mg a day. As an inpatient, he is on: 1. P.r.n. digoxin. 2. Ceftriaxone 1 g daily. 3. Flagyl 500 mg a day. 4. Morphine 2 mg IV q.2 p.r.n. 5. Zofran 4 mg IV q.6 p.r.n. SOCIAL HISTORY: He is single. Never . He has no children. He has a sister, who is alive and well. His parents in their 70s with father had diabetes and heart conditions, and mother of heart conditions. 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 He normally walks up 1 flight without a problem and walks his dog for 15 to 20 minutes without shortness of breath or chest pain. He denies any strokes or mini strokes. No bleeding problems. He smokes 2 cigars a day and has so for 40 years. REVIEW OF SYSTEMS: Review of systems x10 was negative except as above. PHYSICAL EXAM: He is a well-developed, well-nourished gentleman, obese, in no apparent distress. Weight 217 pounds. Heart rate was irregular in 100 to 110 range. Blood pressure 124/84. That was at 8:15 and the recent blood pressure was 137 systolic. O2 sat is 96% on room air. No significant JVD. Carotids 2+ without bruits. No cervical adenopathy or thyromegaly. Extraocular muscles intact on the right. On the left, he has difficulty with lateral gaze which he says is longstanding due to a nerve injury. Cardiac Exam: S1 and S2 with a 3/ 6 systolic ejection murmur heard best at the left lower sternal border and radiating across the precordium. Physiologically split S2. Chest was clear. No CVAT. Abdomen: Obese, nontender. Bowel sounds present. Femoral pulses intact without bruits. Distal pulses intact. No edema. Motor strength 5/5 bilaterally. Deep tendon reflexes 2/4. Alert and oriented x3. DIAGNOSTIC STUDIES/LAB DATA: His labs today include a white count of 1.6, hemoglobin at 9.6, hematocrit 29, platelet count of 18,000. Chemistries include sodium 137, potassium 3.9, BUN of 30, creatinine of 1.35 that is down from 1.96 yesterday. Lactic acid was 2.2 yesterday, down to 1.2. Troponins were 0.04 yesterday and 0.04 today. TSH was normal. Mag was normal. EKG revealed atrial fibrillation with rapid ventricular response. Nonspecific ST-T changes and PVCs. The AFib is new compared to November 2013 when he had sinus rhythm with frequent PVCs and minor nonspecific ST changes. Chest x-ray revealed cardiomegaly and possible obstructive lung disease. He had a renal ultrasound yesterday which revealed bilateral simple renal cysts. He had an abdominal and pelvic CT yesterday with a right adrenal indeterminate nodule, renal cyst, and bilateral inguinal hernias. IMPRESSION: My impression is that Mr. Garzon appears to have myeloma and neutropenia after chemotherapy and new onset atrial fibrillation. Treatment of his atrial fibrillation is limited by considerations regarding possible potential for amyloid heart disease which would make him more sensitive to beta- blockers and digoxin. It also makes calcium channel blockers contraindicated. In addition, he has renal insufficiency and a valvular heart disease. He is at increased risk for cardioembolic events, but has a contraindication to anticoagulation at this point in time given his thrombocytopenia. For the time being, I would recommend the following: We would continue cautious rate control with IV digoxin as tolerated. We would consider adding low dose of beta-norm as tolerated. We would avoid using CYNTHIA inhibitors and calcium channel blockers. We would try to maintain his potassium over 4. We will continue gentle hydration as you are doing. We would repeat an echo as you are planning to confirm stability of his LV function. We would continue chemotherapy for his underlying malignancy which may help decrease the risk of cardiac dysfunction over the mcfp. Would suggest discontinuing tobacco use. Would also avoid caffeine given his atrial and ventricular arrhythmias. Further recommendations will depend on his clinical course. [id number]/[facility] #: [id number] addendum: Patient's echo today revealed decreased LV function c/t 11/2017. Possible etiologies include tachycardia induced, ischemic, etoh, or amyloid related. Given comorbidities, therapeutic options are limited. For now, will continue with rate control and possible low dose beta norm. Consider cynthia inhibitor if renal function improves although efficacy in amyloid may be reduced. Consider evaluation for ischemia once renal function/platelet function rate allows. JFM 11.1.18 3;13 pm MTDD
[2018-01-22] MEDS: cefTRIAXone(*) 1 GM in NS 0.9% 50 ML* 50 ML IVPB SCH (21:04)
[2018-01-23] MEDS: metroNIDAZOLE IV 500 MG/100ML* 500 MG/100 ML BAG IVPB SCH (05:37)
[2018-01-23 06:28] LABS: EGFR Non-African American 69.7 (>60)
[2018-01-23 06:36] LABS: Hematocrit 31 % (42-52); Hemoglobin 10.2 g/dl (14.0-18.0); Mean Corpuscular HGB Conc 33 g/dl (31-36); Mean Corpuscular Hemoglobin 33 pg (27-31); Mean Corpuscular Volume 101 fL (80-94); Mean Platelet Volume 9.7 um3 (7.4-10.4); Platelet Count 17 10^3/ul (150-450); Red Blood Count 3.04 10^6/ul (4.00-5.40); Red Cell Distribution Width 24 % (10.5-15); White Blood Count 2.3 10^3/ul (3.5-10.8)
[2018-01-23 07:04] LABS: ABS Basophils 0 10^3/ul (0-0.2); ABS Neutrophils 0.9 10^3/ul (1.5-7.7); Monocytes % 7 % (0-7)
[2018-01-23 09:49] VITALS: BP 141/77
[2018-01-23] MEDS: Metoprolol Succinate XL TAB* 25 MG PO SCH (09:50)
--- NOTE | 2018-01-23 23:53 | DS ---
CC: Dr. Bob Floyd; Dr. Nito Daniel * DISCHARGE SUMMARY: DATE OF ADMISSION: 01/21/18 DATE OF DISCHARGE: 01/23/18 PRIMARY CARE PROVIDER: Bob Floyd MD PRIMARY ONCOLOGIST: Nito Daniel MD ATTENDING PHYSICIAN: Linda Franks MD *(DICTATED BY HERO ROBERTS) DISCHARGING PROVIDER: HERO Roberts. PRIMARY DISCHARGE DIAGNOSES: 1. Rapid atrial fibrillation, remains in a rate controlled atrial fibrillation at the time of discharge. 2. Demand ischemia. 3. Acute gastroenteritis - resolved. 4. Acute kidney injury secondary to GI loss. 5. Pancytopenia secondary to multiple myeloma and associated treatment. 6. Multiple myeloma cycle 4 day 3 at the time of admission of D. DISCHARGE MEDICATIONS: 1. Allopurinol 300 mg p.o. daily. 2. Amlodipine 2.5 mg p.o. daily. 3. Revlimid 25 mg p.o. daily days 1 through 14 of a 21-day cycle. 4. Dexamethasone 40 mg p.o. weekly. 5. Velcade 1.3 mg/m2 subcu weekly. 6. Lisinopril 40 mg p.o. daily. 7. Simvastatin 20 mg p.o. daily. 8. Metoprolol succinate 25 mg p.o. daily. Medication changes: 1. Start metoprolol succinate as listed above. HOSPITAL IMAGIN. CT of the abdomen and pelvis shows no acute pathology, stable adrenal nodule , and bilateral inguinal hernias without evidence of strangulation. 2. Renal ultrasound shows simple renal cyst bilaterally. 3. Chest x-ray shows cardiomegaly and stigmata of COPD, but no acute process. 4. Transthoracic echocardiogram shows an ejection fraction of 45% to 50% with mild concentric LVH and relative hypokinesis of the inferior and posterior segments, which seems to be new when compared to prior echo as well as moderate aortic stenosis with an aortic valve area of 1.2 cm2. HOSPITAL COURSE: This is a 67-year-old gentleman with multiple myeloma currently on Revlimid, Velcade, and dexamethasone who recently started his fourth cycle of treatment who had a sudden onset of diarrhea, nausea, and vomiting. He was afebrile without any sick contacts. He had multiple episodes of profuse diarrhea at which point he proceed to the patient emergency department for evaluation. When he first reached the emergency department, he was noted to be in rapid atrial fibrillation. Lab work demonstrated a pancytopenia with a neutrophil count of 500, hemoglobin of 11.7, [place] [address]. His chemistry showed some acute kidney injury with BUN elevated at 42, creatinine of 1.96 (baseline creatinine is somewhere near 1 to 1.2). He had an elevated lactic acid to 2.2, troponin of 0.04. The patient was subsequently admitted to ICU for intervention for rate control of his AFib and aggressively rehydrated. CT scan of his abdomen and pelvis was obtained that showed no acute pathology. Due to his neutropenia, he was empirically covered with antibiotics for gut esteban with ceftriaxone and Flagyl. The patient remained afebrile throughout his hospitalization and felt much better after aggressive rehydration. The patient's heart rate was easily controlled and transitioned to oral metoprolol. He remained in AFib; however, even after electrolytes were repleted. He does have remote history of atrial fibrillation. Anticoagulation is contraindicated due to his thrombocytopenia. In regards to his GI symptoms, the patient's diarrhea resolved without intervention. His stool studies were negative for C. diff and another obvious pathogens. His appetite returns to normal and he did not have any further nausea. In regards to elevated troponin, this is likely represented a demand ischemia. Echocardiogram did demonstrate a relative hypokinesis of inferior and posterior segments, which appeared to be new when compared to his prior echocardiogram. Could consider a stress test to further evaluate for reversible ischemia, but unfortunately the patient would not be an appropriate candidate for cardiac catheterization at this time again due to his thrombocytopenia. His platelet count has been consistently less than 50,000 at which point, the antiplatelet agents would be contraindicated. At this time, we will elect to control blood pressure and heart rate as well as cholesterol and hold antiplatelet agents until platelet counts recover at which point aspirin should be added to his daily regimen. DISPOSITION AND FOLLOWUP PLAN: The patient is being discharged to home. He will return to medical oncology office on Friday for lab work and if counts have recovered, he will receive his Velcade injection. He was asked to hold his Revlimid at this time and if his platelet counts recovered, then he can resume on Friday, which will be a delay of 1 week for this cycle. As noted above, the patient has been started on metoprolol for rate control of his AFib and when platelet count is consistently above 50,000, should be started on 81 mg of aspirin and consider additional anticoagulation if he remains in atrial fibrillation. HERO ROBERTS [id number]/[facility] #: [id number] [facility] HOSPITALKinjal
== END 2018-01-23 10:15 | disposition home or self-care (01) | DRG 683 ==
LOC: ED 13:01 → ICU 21:24 → MEDTELE 01-22 13:38
PROVIDERS: ADMIT Internal Medicine; ATTEND Internal Medicine Hematology & Oncology
DX: N17.9 Acute kidney failure, unspecified (principal); I24.8 Other forms of acute ischemic heart disease; C90.00 Multiple myeloma not having achieved remission; D61.818 Other pancytopenia; E87.2 Acidosis; I48.91 Unspecified atrial fibrillation; K52.9 Noninfective gastroenteritis and colitis, unspecified; N28.1 Cyst of kidney, acquired; E27.8 Other specified disorders of adrenal gland; K40.20 Bilateral inguinal hernia, without obstruction or gangrene, not specified as recurrent; Z88.2 Allergy status to sulfonamides; Z88.8 Allergy status to other drugs, medicaments and biological substances; I10 Essential (primary) hypertension; Z82.49 Family history of ischemic heart disease and other diseases of the circulatory system; Z83.3 Family history of diabetes mellitus; F17.290 Nicotine dependence, other tobacco product, uncomplicated; E78.5 Hyperlipidemia, unspecified; M10.9 Gout, unspecified; I35.0 Nonrheumatic aortic (valve) stenosis; I49.3 Ventricular premature depolarization; I95.9 Hypotension, unspecified
CPT/HCPCS: 36415; 71045; 74177; 76775; 80048; 80053; 80162; 81003; 81015; 82140; 82533; 83605; 83690; 83735; 83883; 84155; 84165; 84443; 84484; 85025; 85060; 85610; 85730; 86140; 86850; 86900; 86901; 87040; 87045; 87046; 87077; 87086; 87177; 87209; 87328; 87329; 87425; 87493; 87641; 87899; 93005; 93306; 96401; 99233; 99239; 99285; J0696; J1160; J2270; J2405; J3490; J9041; Q9967

== ENCOUNTER 2019-01-27 09:49 | Inpatient (IN) | payer MEDICARE, OTHER ==
[2019-01-27 11:09] LABS: BUN/Creatinine Ratio 16.3 (8-20); Calcium 9.6 mg/dL (8.6-10.3); EGFR African American 42.9 (>60); EGFR Non-African American 35.4 (>60); Magnesium 2.1 mg/dL (1.9-2.7); Potassium 4.7 mmol/L (3.5-5.0)
[2019-01-27] MEDS ORDERED: Pneumococcal *Vac Polyvalent 0.5 ML VIAL IM ONE (12:00)
--- NOTE | 2019-01-27 12:05 | HP ---
HISTORY AND PHYSICAL: DATE OF ADMISSION: 01/27/19 This is a history and physical for elective sotalol medication load. ATTENDING PHYSICIAN: Dr. Maci Herrera, Cardiology.* (DICTATED BY DULCE MCDONOUGH NP) PRIMARY DIRECT MAIL MARKETER: Dr. Maci Herrera. HISTORY OF PRESENT ILLNESS: This is a pleasant 68-year-old male patient who follows with Dr. Maci Hrerera of our practice due to notable history of paroxysmal AFib, not on anticoagulation due to multiple myeloma with associated thrombocytopenia, followed by Dr. Daniel. Most recent platelet count was on , at that time, platelets were 67,000. Prior to that he has been 30,000 to 50,000. He also has a notable history of high density PVC burden. According to our most recent outpatient note from 01/14/19, he had approximately 20,000 PVCs noted on his November 24-hour Holter monitor in addition to paroxysmal AFib. He is asymptomatic in regard to his ventricular ectopy. He denies chest pain, shortness of breath, dizziness, palpitations, forceful heartbeats or edema. He has been in his usual state of health. He denies any recent illness or infection. He is here today for elective sotalol medication load to help reduce PVC burden. He does have a notable history of chronic kidney disease, most recent creatinine was 1.47 on 01/18/19. He otherwise offers no other complaints and is pleasant and compliant with medications. Last echocardiogram according to our medical records was in May 2018. Per outpatient records, LVEF was 40% to 45%, mild left ventricular hypertrophy, moderate aortic stenosis, mean gradient 15, dimensional index 0.46 with trace mitral insufficiency, mild tricuspid insufficiency, ascending aorta was 4 cm. Last ischemic evaluation according to outpatient medical records was on via exercise nuclear stress test. There is a small to moderate fixed inferoapical infarct. No reversible ischemia. LVEF 45%. TID 1.05. PAST MEDICAL HISTORY: 1. Combined systolic-diastolic heart failure. 2. Persistent AFib. 3. High density PVC burden. 4. Thrombocytopenia. 5. Multiple myeloma. 6. Chronic kidney disease. 7. Moderate aortic stenosis. 8. Left lower extremity DVT. 9. Gout. 10. Hyperlipidemia. 11. Hypertension. 12. A 4 cm ascending aortic aneurysm. HOME MEDICATIONS: Listed includes: 1. Digoxin 125 mcg p.o. daily. 2. Torsemide 20 mg every Friday, Friday, Friday. 3. Tylenol 650 mg p.o. q.4 h. p.r.n. 4. Simvastatin 40 mg q.h.s. 5. Lisinopril 40 mg a day. 6. Allopurinol 300 mg p.o. daily. 7. Potassium chloride 20 mEq p.o. daily. 8. Metoprolol 100 mg 2 by mouth daily. 9. Magnesium oxide 400 mg p.o. daily. 10. Neulasta (pegfilgrastim) as directed. Please note, the patient is not on anticoagulation due to thrombocytopenia. ALLERGIES: Listed as SULFA ANTIBIOTICS, otherwise no known drug allergies. FAMILY HISTORY: Father had congestive heart failure and diabetes, sister has history of hypertension and dyslipidemia, and mother due to complications from hypertensive complications. SOCIAL HISTORY: The patient is single, lives home alone. 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 No children. He smokes cigars and drinks 2 beers a day. REVIEW OF SYSTEMS: As in the above history of present illness. Otherwise, all systems have been reviewed and are otherwise negative except for as above mentioned in the HPI. PHYSICAL EXAMINATION GENERAL: The patient is sitting on edge of bed, appears in no apparent distress , is cooperative with examination. He is alert and oriented x3. VITAL SIGNS: Temperature is 98.2, pulse 79, respirations 16, oxygenation 99% on room air, blood pressure 110/62. HEENT: Head is atraumatic, normocephalic. Oral mucosa is moist. Tongue is midline. NECK: Supple. Trachea midline. No JVD. No carotid bruits. LUNGS: Auscultated posteriorly, no evidence of adventitious breath sounds. Respirations are nonlabored. CARDIAC: Normal S1, S2. Regular rate and rhythm. There is a grade 3/6 early systolic aortic murmur auscultated across entire pericardium radiating into right carotid. Otherwise, no gallop or rub. /GI: Abdomen is protuberant, nontender. Normoactive bowel sounds x4. Unable to palpate for hepatomegaly. EXTREMITIES: No pedal edema, no clubbing, no cyanosis. PERIPHERAL VASCULAR: 2+ brachial and dorsalis pedis pulses palpated bilaterally and symmetrically. SKIN: Intact. No evidence of jaundice, rashes, or ecchymosis appreciated. DIAGNOSTIC STUDIES/LAB DATA: Blood work at this time is pending. Outpatient labs from 01/18/2019 were reviewed EKG pending. ASSESSMENT AND PLAN: 1. History of persistent atrial fibrillation, on metoprolol therapy. Most recent Holter from November 2018 revealed persistent atrial fibrillation with high density premature ventricular complex burden. The patient had 20,000 premature ventricular complexes in a 24-hour timeframe. He is asymptomatic. CHADS-VASc is 4, not on anticoagulation due to thrombocytopenia. Most recent platelets were 67,000 on 01/18/19; Repeat PLTs were 78,000. Dr. Herrera spoke with Dr. Daniel who agreed initiation of OAC (Eliquis) was reasonable with close observation). He is here for elective sotalol medication load to help reduce ventricular ectopy burden. Creatinine clearances to be updated. Most recent creatinine clearance on 01/18/19 was 65. We will obtain an ECG to calculate QTc measurement prior to initiation. We will check daily ECGs with BMP and magnesium. Recommend keeping K greater than 4, magnesium greater than 2. He will be monitored on continuous telemetry should any proarrhythmias occur. 2. History of combined systolic-diastolic heart failure. LVEF 40% to 45%, compensated on physical examination. We will continue metoprolol and lisinopril therapy. We will reevaluate metoprolol after initiation of sotalol. He is euvolemic. We will continue torsemide 20 mg every Friday, Friday, Friday. We will reevaluate digoxin given need, will likely resolve after initiation of sotalol. 3. History of chronic kidney disease. Creatinine 1.47 on 01/18/19. We will update chemistry to calculate sotalol medication dose. 4. History of multiple myeloma. Follows with Dr. Daniel with known history of thrombocytopenia. 5. DVT prophylaxis: Equals early frequent ablation. We will not order anticoagulation due to above #4. 6. Disposition: Pending course. Dr. Maci Herrera has personally seen and examined the patient and agrees with the above assessment and plan. DULCE MCDONOUGH, ASSOCIATE PROFESSOR OF [employer]ATRE [id number]/[facility] #: [id number] [place]
[2019-01-27] MEDS ORDERED: [UNRECOGNIZED DRUG - OTHER] TOPICAL PRN (15:25)
[2019-01-27] MEDS ORDERED: DICLOFENAC TOPICAL PRN (15:25)
[2019-01-27] MEDS ORDERED: Acetaminophen TAB* 325 MG PO PRN (15:25)
[2019-01-27] MEDS ORDERED: Sotalol TAB* 80 MG PO ONE (15:27)
[2019-01-27] MEDS: Digoxin TAB* 0.125 MG PO SCH (15:55)
[2019-01-27 18:03] LABS: Hematocrit 39 % (42-52); Hemoglobin 12.8 g/dL (14.0-18.0); Mean Corpuscular HGB Conc 33 g/dL (31-36); Mean Corpuscular Hemoglobin 32 pg (27-31); Mean Corpuscular Volume 97 fL (80-94); Mean Platelet Volume 10.2 fL (7.4-10.4); Platelet Count 79 10^3/uL (150-450); Red Blood Count 3.98 10^6 /uL (4.18-5.48); Red Cell Distribution Width 17 % (10-15); White Blood Count 4.9 10^3/uL (3.5-10.8)
[2019-01-27] MEDS: Apixaban* 5 MG TAB PO SCH (20:20)
[2019-01-28 05:32] LABS: BUN/Creatinine Ratio 18.8 (8-20); Calcium 9.4 mg/dL (8.6-10.3); EGFR African American 50.4 (>60); EGFR Non-African American 41.7 (>60); Potassium 4.6 mmol/L (3.5-5.0)
--- NOTE | 2019-01-28 10:27 | PN ---
Subjective Date of Service: 01/28/19 - CC: PVC's Interval History: The patient is w/o new c/o. Had some cold symptoms coming in that are stable. No palpitations/no SOB, slept well. Medications Active Medications: Acetaminophen (Tylenol Tab*) 487.5 mg PO Q6H PRN PRN Reason: FEVER/PAIN Allopurinol (Zyloprim Tab*) 300 mg PO DAILY [facility] Apixaban (Eliquis*) 5 mg PO BID [facility] Last Admin: 01/27/19 20:20 Dose: 5 mg Atorvastatin Calcium (Lipitor*) 10 mg PO DAILY [facility] Digoxin (Lanoxin Tab*) 0.125 mg PO DAILY@1700 [facility] Last Admin: 01/27/19 15:55 Dose: 0.125 mg Lisinopril (Prinivil Tab*) 40 mg PO DAILY [facility] Magnesium Oxide (Magox 400 Tab*) 400 mg PO DAILY [facility] Non-Formulary Medication (Diclofenac/Capsicum Oleoresin [Diclosaicin Topical Therapy Kt]) 1 top.soln TOPICAL .SEE INSTRUCTIONS PRN PRN Reason: PAIN - MILD Potassium Chloride (Klor Con Er Tab*) 20 meq PO DAILY [facility] Sotalol HCl (Betapace Tab*) 40 mg PO BID [facility] Torsemide (Demadex*) 20 mg PO DAILY [facility] Objective Vital Signs: Temp Pulse Resp BP Pulse Ox 97.8 F 78 16 109/66 98 01/28/19 07:00 01/28/19 07:00 01/28/19 08:00 01/28/19 07:00 01/28/19 07:00 Vital Signs - 12 hr Temp Pulse Resp BP Pulse Ox 01/28/19 08:00 16 01/28/19 07:00 97.8 F 78 20 109/66 98 01/28/19 03:33 98.1 F 84 18 108/74 98 01/27/19 23:26 97.3 F 78 16 110/66 99 Oxygen Devices in Use Now: None Appearance: somewhat older male, NAD Eyes: No Scleral Icterus, PERRLA Ears/Nose/Mouth/Throat: Mucous Membranes Moist Neck: NL Appearance and Movements; NL JVP Respiratory: Symmetrical Chest Expansion and Respiratory Effort, Clear to Auscultation - few wheezes and rhonchi Cardiovascular: NL Sounds; No Murmurs; No JVD - irregular Abdominal: NL Sounds; No Tenderness; No Distention Extremities: No Edema Skin: No Rash or Ulcers Neurological: Alert and Oriented x 3 Laboratory Results: 01/27/19 17:56 01/28/19 04:48 EKG Data: 01/28/19, afib, 2 PVC's, QTc 434 Assessment/Plan 68 yo with chronic afib, frequent PVC's, >25% total burden. Low platelets and off anticoagulation until now. PVC's: adding sotalol, following QTc carefully due to CKD Continue loading. AFIB Starting Eliquis as PLT's improving, Dr Daniel aware and agrees. Thrombocytopenia: Follow PLTs carefully. management per Dr daniel. Can reconsider Eliquis PRN future drop below 50K
[2019-01-28 10:40] LABS: Hematocrit 38 % (42-52); Hemoglobin 12.2 g/dL (14.0-18.0); Mean Corpuscular HGB Conc 32 g/dL (31-36); Mean Corpuscular Hemoglobin 32 pg (27-31); Mean Corpuscular Volume 99 fL (80-94); Mean Platelet Volume 10.4 fL (7.4-10.4); Platelet Count 63 10^3/uL (150-450); Red Blood Count 3.85 10^6 /uL (4.18-5.48); Red Cell Distribution Width 18 % (10-15); White Blood Count 5.8 10^3/uL (3.5-10.8)
[2019-01-28] MEDS: Lisinopril TAB* 10 MG PO SCH (12:03)
[2019-01-28] MEDS: Atorvastatin* 10 MG TAB PO SCH (12:03)
[2019-01-28] MEDS: Sotalol TAB* 80 MG PO SCH ×2 (12:03→20:04)
[2019-01-28] MEDS: Magnesium Oxide TAB* 400 MG PO SCH (12:04)
[2019-01-28] MEDS: Torsemide TAB* 20 MG PO SCH (12:04)
[2019-01-28] MEDS: Potassium Chlor TAB* 20 MEQ TAB.ER PO SCH (12:04)
[2019-01-28] MEDS: Apixaban* 5 MG TAB PO SCH ×2 (12:04→20:05)
[2019-01-28] MEDS: Allopurinol TAB* 300 MG PO SCH (12:04)
[2019-01-28] MEDS: Digoxin TAB* 0.125 MG PO SCH (16:03)
[2019-01-29 06:08] LABS: BUN/Creatinine Ratio 20.3 (8-20); Calcium 9.7 mg/dL (8.6-10.3); EGFR African American 42.4 (>60); Potassium 4.7 mmol/L (3.5-5.0)
[2019-01-29] MEDS: Apixaban* 5 MG TAB PO SCH (09:58)
[2019-01-29] MEDS: Potassium Chlor TAB* 20 MEQ TAB.ER PO SCH (09:59)
[2019-01-29] MEDS: Magnesium Oxide TAB* 400 MG PO SCH (10:08)
[2019-01-29] MEDS: Torsemide TAB* 20 MG PO SCH (10:08)
[2019-01-29] MEDS: Atorvastatin* 10 MG TAB PO SCH (10:08)
[2019-01-29] MEDS: Allopurinol TAB* 300 MG PO SCH (10:08)
[2019-01-29] MEDS: Lisinopril TAB* 10 MG PO SCH (10:08)
[2019-01-29] MEDS: Sotalol TAB* 80 MG PO SCH (10:08)
[2019-01-29 12:07] VITALS: BP 102/59
--- NOTE | 2019-01-29 12:50 | DS ---
DISCHARGE SUMMARY: DATE OF ADMISSION: 01/27/19 DATE OF DISCHARGE: 01/29/19 ATTENDING PHYSICIAN: Dr. Maci Herrera, Cardiology.* (DICTATED BY DULCE MCDONOUGH NP) PRIMARY CARE PROCESS MANAGER: Dr. Maci Herrera. ADMITTING DIAGNOSES: 1. High density premature ventricular contraction burden, here for elective sotalol medication load. 2. History of multiple myeloma with notable history of thrombocytopenia. 3. History of persistent atrial fibrillation. 4. History of hypertension. DISCHARGE DIAGNOSES: 1. High density premature ventricular contraction burden, status post successful sotalol medication load since 01/27/19. Due to renal clearance, he will start taking sotalol 80 mg p.o. daily starting 01/30/19. The patient was able to initiate Eliquis therapy for oral anticoagulation in regards to his persistent atrial fibrillation. 2. History of multiple myeloma with known thrombocytopenia, follows Dr. Daniel. Platelet count has recently improved. Most recent platelet count was 79,000 on 01/27/19. Thus, Dr. Daniel had stated it was okay to do a trial of Eliquis therapy with close observation of platelet count. He will be getting weekly CBC starting 02/03/19, x2 weeks. Denies any issues of bleeding since starting oral anticoagulant. 3. History of persistent atrial fibrillation. CHADS-VASc greater than 2, now on Eliquis and sotalol therapy. PROCEDURES PERFORMED: COURSE OF HOSPITAL STAY: This is a pleasant 68-year-old male patient who follows Dr. Maci Herrera of our practice due to a notable history of persistent A-Fib, high density PVC burden, systolic heart failure, chronic kidney disease, multiple myeloma with known thrombocytopenia, who presented to [facility] on 01/27/19, for elective sotalol medication load. At that time, due to improvement of platelet count, it was decided by Dr. Daniel and Dr. Herrera that it was safe to initiate Eliquis 5 mg p.o. b.i.d. with close observation of platelet count. Thus, he will get weekly CBCs for 2 weeks now that he is on oral anticoagulation. He denies any bleeding episodes since initiating Eliquis therapy. He has been successfully loaded with sotalol. Metoprolol has been discontinued. He has had occasional VPCs, no VT. He is stable and asymptomatic and tolerating sotalol medication. Most recent vital signs: Temperature is 97.9, pulse 90, respirations 16, oxygenation 100% on room air, blood pressure 100/54. Magnesium and potassium have remained stable. Most recent potassium level was 4.7 on 01/29/19. Magnesium was 2 on . Creatinine has been ranging between 1.6 and 1.9, which is reflective of his baseline renal function. Due to renal clearance, it was decided to convert sotalol to 80 mg p.o. daily starting 01/30/19, which the patient is aware of. There have been no complications. This morning's ECG was reviewed. His QTc on 01/29/19 ECG is 420 with frequent PVCs and underlying known A-Fib, rate 87. The patient is to be discharged home in stable condition. FOLLOWUP APPOINTMENTS: 1. The patient to follow up with Dr. Maci eHrrera on 02/05/19 at 4 p.m. at [facility] office location. Follow up with PCP, Dr. Thompson in 7 to 10 days. 2. Outpatient labs to be obtained, to include CBC starting 02/03/19, with repeat 02/10/19. He is requesting these get obtained by the [facility] lab. DISCHARGE MEDICATIONS: Include: 1. Sotalol 80 mg p.o. daily. 2. Torsemide 20 mg daily. 3. K-Chlor 20 mEq a day. 4. Magnesium oxide 400 mg a day. 5. Lisinopril 40 mg a day. 6. Digoxin 0.125 mg p.o. daily. 7. Lipitor 10 mg a day. 8. Eliquis 5 mg p.o. b.i.d. 9. Allopurinol 300 mg p.o. daily. 10. Tylenol as directed. (Medications discontinued this admission include metoprolol therapy). PHYSICAL EXAMINATION: Today, the patient is alert and oriented, standing with sister at bedside, appears in no apparent distress. Cooperative with exam. HEENT: Head is atraumatic, normocephalic. Oral mucosa is moist. Tongue is midline. Neck: Supple. Trachea midline. No JVD. No carotid bruits. Cardiac : Normal S1, S2. Irregular rate and rhythm. There is a grade 3/6 early systolic aortic murmur auscultated across the entire pericardium. No gallop or rub. Lungs: Auscultated posteriorly, no evidence of adventitious breath sounds. /GI: Abdomen is soft, nontender, nondistended. Normoactive bowel sounds x4. Extremities: No pedal edema, no clubbing, no cyanosis. Dr. Maci Herrera agrees with the above assessment and plan. I personally spoke to her on the phone today who agreed with that the patient may be discharged home today. DULCE MCDONOUGH NP [id number]/CPS #: [id number] PARKER
== END 2019-01-29 12:15 | disposition home or self-care (01) | DRG 309 ==
LOC: MEDTELE 09:49 → OBSVTOIN 10:33 → MEDTELE 10:33
PROVIDERS: ADMIT Specialist; ATTEND Specialist
DX: I49.3 Ventricular premature depolarization (principal); I50.42 Chronic combined systolic (congestive) and diastolic (congestive) heart failure; C90.00 Multiple myeloma not having achieved remission; I13.0 Hypertensive heart and chronic kidney disease with heart failure and stage 1 through stage 4 chronic kidney disease, or unspecified chronic kidney disease; I48.19 Other persistent atrial fibrillation; I48.0 Paroxysmal atrial fibrillation; D69.6 Thrombocytopenia, unspecified; N18.9 Chronic kidney disease, unspecified; M10.9 Gout, unspecified; E78.5 Hyperlipidemia, unspecified; I08.3 Combined rheumatic disorders of mitral, aortic and tricuspid valves; I71.2 Thoracic aortic aneurysm, without rupture; Z88.2 Allergy status to sulfonamides; Z86.718 Personal history of other venous thrombosis and embolism; Z72.0 Tobacco use; Z72.89 Other problems related to lifestyle; Z79.01 Long term (current) use of anticoagulants; Z79.899 Other long term (current) drug therapy
CPT/HCPCS: 36415; 80048; 83735; 85027; 90732; 93005; 96377; 96401; A9270-GY; J2505; J9025

== ENCOUNTER 2019-03-31 09:00 | Emergency (ER) | payer MEDICARE, OTHER ==
[2019-03-31 09:12] VITALS: BP 139/68
--- NOTE | 2019-03-31 10:28 | UC ---
Lower Extremity/Ankle HPI - HPI Summary HPI Summary: 68-year-old male who started experiencing some right foot pain yesterday in the arch of his foot and today he states he has more pain and unable to put pressure on his foot. He denies any injury. He states no chronic health problems, no diabetes. - History of Current Complaint Chief Complaint: UCLowerExtremity Stated Complaint: FOOT PAIN Time Seen by Provider: 03/31/19 10:20 Hx Obtained From: Patient Onset/Duration: Gradual Onset Severity Initially: Mild Severity Currently: Moderate Pain Intensity: 8 Aggravating Factor(s): Standing, Ambulation Alleviating Factor(s): Elevation - Patient states the foot is not as painful with elevation. Able to Bear Weight: Yes - pain with bearing weight. - Allergies/Home Medications Allergies/Adverse Reactions: Allergies Allergy/AdvReac Type Severity Reaction Status Date / Time Sulfa (Sulfonamide Allergy Hives Verified 03/31/19 09:12 Antibiotics) sulfur dioxide Allergy Hives Verified 03/31/19 09:12 Home Medications: Home Medications Simvastatin 40 mg PO DAILY 03/31/19 [History Confirmed 03/31/19] PMH/Surg Hx/FS Hx/Imm Hx Previously Healthy: Yes Endocrine History: Dyslipidemia Cardiovascular History: Hypertension - Surgical History Surgical History: None Surgery Procedure, Year, and Place: 05/15/18 - he reports no PSHx on this date. - Family History Known Family History: Positive: Cardiac Disease, Hypertension, Diabetes - Social History Occupation: Retired Alcohol Use: Occasionally Alcohol Amount: six pack of beer per week Substance Use Type: None Smoking Status (MU): Light Every Day Tobacco Smoker Type: Cigars Amount Used/How Often: 3 cigars per day Length of Time of Smoking/Using Tobacco: 40 years Have You Smoked in the Last Year: Yes Household Exposure Type: Cigars - Immunization History Most Recent Influenza Vaccination: 2019 Most Recent Pneumonia Vaccination: 01/27/19 Review of Systems All Other Systems Reviewed And Are Negative: Yes Musculoskeletal: Positive: Other: - Pain started yesterday at the arch of his right foot and now goes over the dorsum of his right foot. Is Patient Immunocompromised?: No Physical Exam Triage Information Reviewed: Yes Appearance: Well-Appearing, No Pain Distress, Well-Nourished Vital Signs: Initial Vital Signs Temp 97.5 F 03/31/19 09:08 Pulse 96 03/31/19 09:08 Resp 20 03/31/19 09:08 BP 139/68 03/31/19 09:08 Pulse Ox 99 03/31/19 09:08 Vital Signs Reviewed: Yes Musculoskeletal: Positive: Strength Intact, ROM Intact, No Edema, Other: - Good peripheral pulses, neuro sensation and capillary refill. No swelling, erythema , deformity or bruising is noted. Achilles is intact. Mild pain on palpation over the dorsum of his right foot. Neurological Exam: Normal Psychological Exam: Normal Skin Exam: Normal Lower Extremity Course/Dx - Course Course Of Treatment: Right foot x-ray:FINDINGS: BONE DENSITY: There is diffuse osteopenia. BONES: There is no displaced fracture. There is a plantar calcaneal enthesophyte. JOINTS: There is osteoarthritis of the first MTP joint. There is osteoarthritis of interphalangeal joints. There is osteoarthritis of the midfoot including the first CMC joint. ALIGNMENT: There is no dislocation. SOFT TISSUES: There is peripheral arterial calcification. OTHER FINDINGS: None. IMPRESSION: 1. OSTEOPENIA. 2. OSTEOARTHRITIS. 3. PERIPHERAL ARTERIAL DISEASE. 4. NO ACUTE OSSEOUS INJURY. IF SYMPTOMS PERSIST, RECOMMEND REPEAT IMAGING I spoke with the patient at length about following up with his primary care provider regarding the peripheral artery disease. He is unaware that he has any indication of that and stated he will call his doctor. I gave him a report of his x-ray to read that to his primary care provider. He is retired so he can keep his foot elevated as much as possible and take whatever medication he normally takes for pain. I advised him if his foot gets cold, blue or discolored, or known he is to go to the emergency room immediately. The patient is in agreement with this plan of action. - Differential Dx/Diagnosis Provider Diagnosis: Right foot pain Discharge ED - Sign-Out/Discharge Documenting (check all that apply): Patient Departure All imaging exams completed and their final reports reviewed: Yes - Discharge Plan Condition: Fair Disposition: HOME Patient Education Materials: Plantar Fasciitis (ED), Peripheral Artery Disease (ED) Referrals: Airam Thompson MD [Primary Care Provider] - Additional Instructions: Elevate as much as possible, may apply warm moist compresses to the area 4-6 times a day. Definite follow-up with your primary care provider regarding the peripheral arterial disease and if the pain worsens. If you have any symptoms of a cold foot, discoloration or worsening pain or numbness you are to go to the emergency room immediately for further treatment. - Billing Disposition and Condition Condition: FAIR Disposition: Home
== END 2019-03-31 11:11 | disposition home or self-care (01) ==
LOC: UCEAST 09:00
DX: M19.071 Primary osteoarthritis, right ankle and foot (principal); M79.671 Pain in right foot; M85.871 Other specified disorders of bone density and structure, right ankle and foot; I73.9 Peripheral vascular disease, unspecified; F17.290 Nicotine dependence, other tobacco product, uncomplicated; I10 Essential (primary) hypertension; E78.5 Hyperlipidemia, unspecified; Z79.899 Other long term (current) drug therapy; Z88.2 Allergy status to sulfonamides
CPT/HCPCS: 99212; G0463

== ENCOUNTER 2019-06-24 08:06 | Emergency (ER) | payer MEDICARE, OTHER ==
[2019-06-24 08:39] VITALS: BP 105/58
--- NOTE | 2019-06-24 08:47 | UC ---
Knee Pain HPI - HPI Summary HPI Summary: 69-year-old male comes in with a chief complaint of right knee swelling and pain. Started about 3 days ago. Pain is worse in the medial aspect of the knee. No fevers no chills. No calf pain. Patient does have a history of gout. He's never had gout in his knee. No known specific trauma. With the increased swelling it's harder for him to flex his knee. Ambulation makes the pain worse. Rest decreases the pain. - History of Current Complaint Chief Complaint: UCLowerExtremity Stated Complaint: KNEE PAIN Time Seen by Provider: 06/24/19 08:14 Pain Intensity: 7 - Allergies/Home Medications Allergies/Adverse Reactions: Allergies Allergy/AdvReac Type Severity Reaction Status Date / Time Sulfa (Sulfonamide Allergy Hives Verified 06/24/19 08:12 Antibiotics) sulfur dioxide Allergy Hives Verified 06/24/19 08:12 Home Medications: Home Medications Allopurinol TAB* [Zyloprim 300 MG TAB*] 300 mg PO DAILY 01/21/18 [History Confirmed 06/24/19] Acetaminophen [Tylenol Extra Strength] 500 mg PO Q6HR PRN 05/15/18 [History Confirmed 06/24/19] Digoxin TAB* [Lanoxin TAB*] 0.125 mg PO 1700 #30 tab 05/17/18 [Rx Confirmed 05/13] Lisinopril TAB* [Prinivil TAB 10 MG*] 40 mg PO DAILY #0 tab 05/17/18 [Rx Confirmed 06/24/19] Diclofenac/Capsicum Oleoresin [Diclosaicin Topical Therapy Kt] 1 top.soln TOPICAL SEE INSTRUCTIONS PRN 01/27/19 [History Confirmed 06/24/19] Magnesium Oxide [Magnesium] 400 mg PO DAILY 01/27/19 [History Confirmed 06/24/19 ] Potassium Chlor TAB* [Potassium Chlor TAB 20 MEQ*] 20 meq PO DAILY 01/27/19 [ History Confirmed 06/24/19] Torsemide TAB* [Demadex 20 MG*] 20 mg PO DAILY 01/27/19 [History Confirmed 06/23] Apixaban* [Eliquis*] 5 mg PO BID #60 tab 01/29/19 [Rx Confirmed 06/24/19] Sotalol TAB* [Betapace 80 MG TAB*] 80 mg PO DAILY #90 tab 01/29/19 [Rx Confirmed 06/24/19] Simvastatin 40 mg PO DAILY 03/31/19 [History Confirmed 06/24/19] PMH/Surg Hx/FS Hx/Imm Hx Previously Healthy: Yes - GOUT,CKD Cardiovascular History: Congestive Heart Failure, Atrial Fibrillation Other Cancer History: multiple myeloma - Surgical History Surgical History: None Surgery Procedure, Year, and Place: 05/15/18 - he reports no PSHx on this date. - Family History Known Family History: Positive: Cardiac Disease, Hypertension, Diabetes - Social History Alcohol Use: Occasionally Alcohol Amount: six pack of beer per week Substance Use Type: None Smoking Status (MU): Light Every Day Tobacco Smoker Type: Cigars Amount Used/How Often: 3 cigars per day Length of Time of Smoking/Using Tobacco: 40 years Have You Smoked in the Last Year: Yes Household Exposure Type: Cigars - Immunization History Most Recent Influenza Vaccination: 2019 Most Recent Pneumonia Vaccination: 01/27/19 Review of Systems All Other Systems Reviewed And Are Negative: Yes Constitutional: Positive: Negative Skin: Positive: Negative Eyes: Positive: Negative ENT: Positive: Negative Respiratory: Positive: Negative Cardiovascular: Positive: Negative Motor: Positive: Decreased ROM Neurovascular: Positive: Negative Musculoskeletal: Positive: Other: - SEE HPI Neurological/Mental Status: Positive: Negative Psychological: Positive: Negative Is Patient Immunocompromised?: No Physical Exam Triage Information Reviewed: Yes Appearance: Well-Appearing, Well-Nourished, Pain Distress - MILD WITH EXAM AND ROM OF RT KNEE Vital Signs: Initial Vital Signs Resp 16 06/24/19 08:16 Vital Signs Reviewed: Yes Eye Exam: Normal Eyes: Positive: Conjunctiva Clear Neck: Positive: Supple - Amandeep everything Respiratory: Positive: No respiratory distress Musculoskeletal: Positive: Strength Intact, Other: - Right knee has an effusion. No erythema not hot to touch. Is most tender in the medial anterior aspect. No tenderness in the popliteal area or the lateral or anterior. Calf is soft and not swollen and nontender. Patient has limited range of motion with the knee due to the effusion. Negative Delon's stable to exam. 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 COMPARISON: No relevant prior exams available on the [facility] PACS for comparison. Technique: RIGHT knee: AP, tunnel, lateral, sunrise views obtained. Report: #. Normal articular alignment. #. Moderate joint effusion. #. Negative for fracture or osteochondral lesion. #. Osteophytosis. Moderate medial joint space narrowing. #. Unremarkable soft tissue contours. Atherosclerotic calcification at the visualized distal superficial femoral artery at the adductor canal and popliteal artery. IMPRESSION: #. Moderate osteoarthritis. #. Moderate joint effusion. #. No radiographic evidence for fracture. <Electronically signed by Roderick Villegas MD in OV> 06/24/19841 Dictated By: Roderick Villegas MD Dictated Date/Time: 06/24/19839 Transcribed Date/Time: 06/24/19839 Copy to: CC:Airam Thompson MD; Albert Stoddard MD Imaging - [facility] [address] [place] [address] [place] [address] ph ) ph ([phone]) ph ([phone]) End of Report Content ==== I discussed the x-rays with the patient. Patient's condition is most consistent with arthritis and degeneration of the cartilage in the knee. Patient is on a blood thinner so he cannot take nonsteroidal anti- inflammatories. He'll take Tylenol as needed ice it. Recommended neoprene brace if helpful. Patient has a cane and walker at home that he will use as needed. Follow-up with orthopedics. Get seen sooner if worse or any questions or concerns. - Differential Dx/Diagnosis Provider Diagnosis: Effusion, right knee Discharge ED - Sign-Out/Discharge Documenting (check all that apply): Patient Departure All imaging exams completed and their final reports reviewed: Yes - Discharge Plan Condition: Stable Disposition: HOME Patient Education Materials: Swollen Knee Joint (ED) Referrals: Airam Thompson MD [Primary Care Provider] - Juan A Cardenas MD [Medical Doctor] - Additional Instructions: FOLLOW UP WITH ORTHOPEDICS. GET REEVALUATED IF NOT IMPROVED OR WORSE OR ANY QUESTIONS OR CONCERNS. - Billing Disposition and Condition Condition: STABLE Disposition: Home
== END 2019-06-24 08:56 | disposition home or self-care (01) ==
LOC: UCEAST 08:06
DX: M25.461 Effusion, right knee (principal); M17.11 Unilateral primary osteoarthritis, right knee; M25.561 Pain in right knee; N18.9 Chronic kidney disease, unspecified; I48.91 Unspecified atrial fibrillation; Z79.01 Long term (current) use of anticoagulants; I50.9 Heart failure, unspecified; Z79.899 Other long term (current) drug therapy; Z88.2 Allergy status to sulfonamides; F17.290 Nicotine dependence, other tobacco product, uncomplicated
CPT/HCPCS: 99212; G0463

== ENCOUNTER 2020-06-13 11:16 | Inpatient (IN) ==
[2020-06-13] MEDS ORDERED: Dexamethasone IV 4 MG/ML 5 ML VIAL (20 MG) IVPB ONE (11:31)
[2020-06-13 12:31] LABS: Hematocrit 29 % (42-52); Hemoglobin 9.8 g/dL (14.0-18.0); Mean Corpuscular HGB Conc 33 g/dL (31-36); Mean Corpuscular Hemoglobin 32 pg (27-31); Mean Corpuscular Volume 96 fL (80-94); Mean Platelet Volume 9.3 fL (7.4-10.4); Platelet Count 72 10^3/uL (150-450); Red Blood Count 3.06 10^6 /uL (4.18-5.48); Red Cell Distribution Width 22 % (10-15); White Blood Count 8.9 10^3/uL (3.5-10.8)
[2020-06-13 12:37] LABS: Activated Partial Thrombo Time 31.4 seconds (26.0-38.0); INR 1.25 (0.82-1.09)
[2020-06-13 13:02] LABS: Influenza A Molecular Negative (Negative); Influenza B Molecular Negative (Negative)
[2020-06-13 13:10] LABS: ALT 25 U/L (7-52); AST 41 U/L (13-39); Albumin 3.7 g/dL (3.2-5.2); Albumin/Globulin Ratio 1.1 (1-3); Alkaline Phosphatase 114 U/L (34-104); BUN/Creatinine Ratio 30.8 (8-20); Blood Urea Nitrogen 89 mg/dL (6-24); C Reactive Protein 145.44 mg/L (<8.01); Calcium 9.2 mg/dL (8.6-10.3); Chloride 103 mmol/L (101-111); Creatine Kinase 110 U/L (10-223); EGFR African American 26.3 (>60); EGFR Non-African American 21.7 (>60); Globulin 3.3 g/dL (2-4); Glucose 117 mg/dL (70-100); Potassium 4.7 mmol/L (3.5-5.0); Sodium 130 mmol/L (135-145)
[2020-06-13 13:12] LABS: Anion Gap 13 mmol/L (2-11); CO2 Carbon Dioxide 14 mmol/L (22-32)
[2020-06-13] MEDS ORDERED: NS 0.9% 500 ml BAG 500 ML IV ONE (13:13)
[2020-06-13 13:15] LABS: CKMB ng/mL 2.7 ng/mL (0.6-6.3); Troponin I 0.05 ng/mL (<0.03)
[2020-06-13 13:20] LABS: ABS Lymphocytes 0.5 10^3/ul (1.0-4.8); ABS Monocytes 3.2 10^3/ul (0-0.8); ABS Neutrophils 5.3 10^3/ul (1.5-7.7); Eosinophil % 0.2 %; Lymphocyte % 5.2 %
[2020-06-13 13:40] LABS: Urine Appearance Cloudy; Urine Bilirubin Negative (Negative); Urine Blood 1+ (Negative); Urine Color Yellow; Urine Glucose Negative (Negative); Urine Ketones Negative (Negative); Urine Nitrite Negative (Negative); Urine Protein 1+(30 mg/dL) (Negative); Urine Specific Gravity 1.014 (1.010-1.030); Urine Urobilinogen Negative (Negative)
[2020-06-13 13:56] LABS: Urine Bacteria Absent (Absent); Urine Red Blood Cell 3+(>10/hpf) (Absent); Urine Squamous Epithelial Cell Present (Absent); Urine White Blood Cell 1+(6-10/hpf) (Absent)
[2020-06-13] MEDS ORDERED: Remdesivir 100 mg Vial 200 MG in NS 0.9% 250 ml 210 ML IV ONE (14:26)
[2020-06-13] MEDS ORDERED: Remdesivir 100 mg Vial 100 MG in NS 0.9% 250 ml 230 ML IV SCH (14:30)
[2020-06-13] MEDS ORDERED: Lactated Ringers 1000 ml BAG 1,000 ML IV SCH (15:00)
[2020-06-13] MEDS ORDERED: Enoxaparin 40 MG/0.4 ML SYR SUBCUT SCH (15:00)
[2020-06-13 15:38] LABS: Magnesium 2.3 mg/dL (1.9-2.7)
[2020-06-13] MEDS ORDERED: Albuterol 2.5mg/3 ml (0.083%) NEB.SOLN INH PRN (16:25)
[2020-06-13 16:41] LABS: LDH 436 U/L (140-271)
[2020-06-13 18:04] LABS: Ferritin > 1500.0 ng/mL (24-336)
[2020-06-13 18:34] LABS: Troponin I 0.03 ng/mL (<0.03)
[2020-06-13] MEDS: Triamcinolone 0.5% OINT 1 TUBE TOPICAL SCH (19:20)
[2020-06-13] MEDS ORDERED: Albuterol/Ipratropium NEB.SOL (2.5/0.5 MG) 3 ML NEB.SOLN INH PRN (19:41)
[2020-06-13] MEDS ORDERED: Albuterol/Ipratropium NEB.SOL (2.5/0.5 MG) 3 ML NEB.SOLN ONE (19:50)
[2020-06-13] MEDS ORDERED: Furosemide 20 mg/2 ml IV VIAL IV SLOW PU ONE (20:17)
[2020-06-14 04:23] LABS: INR 1.55 (0.82-1.09)
[2020-06-14 04:25] LABS: ABS Lymphocytes 0.4 10^3/ul (1.0-4.8); ABS Monocytes 1.8 10^3/ul (0-0.8); ABS Neutrophils 4.6 10^3/ul (1.5-7.7); Eosinophil % 0.5 %; Hematocrit 28 % (42-52); Hemoglobin 9.3 g/dL (14.0-18.0); Lymphocyte % 6.3 %; Mean Corpuscular HGB Conc 33 g/dL (31-36); Mean Corpuscular Hemoglobin 32 pg (27-31); Mean Corpuscular Volume 98 fL (80-94); Mean Platelet Volume 9.7 fL (7.4-10.4); Nucleated Red Blood Cells % 0.2; Platelet Count 85 10^3/uL (150-450); Red Cell Distribution Width 22 % (10-15); White Blood Count 6.9 10^3/uL (3.5-10.8)
[2020-06-14 04:33] LABS: Albumin 3.5 g/dL (3.2-5.2); Albumin/Globulin Ratio 1.2 (1-3); BUN/Creatinine Ratio 35.7 (8-20); Calcium 8.9 mg/dL (8.6-10.3); EGFR African American 35.8 (>60); EGFR Non-African American 29.6 (>60); Potassium 4.8 mmol/L (3.5-5.0); Total Bilirubin 1.1 mg/dL (0.2-1.0); Total Protein 6.5 g/dL (6.4-8.9)
[2020-06-14 04:54] LABS: Polychromasia 1+
[2020-06-14] MEDS: Dexamethasone IV 4 MG/ML VIAL 1 ml VIAL IV SLOW PU SCH (08:20)
[2020-06-14] MEDS: Triamcinolone 0.5% OINT 1 TUBE TOPICAL SCH ×2 (08:25→20:03)
[2020-06-14] MEDS ORDERED: Potassium Chlor 20 meq TAB.ER PO SCH (09:00)
[2020-06-14] MEDS ORDERED: DECITABINE PO SCH (09:00)
[2020-06-14] MEDS ORDERED: CEDAZURIDINE PO SCH (09:00)
[2020-06-14] MEDS: Remdesivir 100 mg Vial 100 MG in NS 0.9% 250 ml 230 ML IV SCH (09:33)
[2020-06-14] MEDS ORDERED: Perflutren Lipid Microsphere 3 ML VIAL ONE (11:03)
[2020-06-14] MEDS ORDERED: Sodium Citrate/Citric Acid LIQ 15 ML UDC PO ONE (12:15)
[2020-06-14] MEDS: Sodium Citrate/Citric Acid LIQ 15 ML UDC PO SCH ×2 (15:19→20:02)
[2020-06-14] MEDS: Calcium Carb (TUMS) 500 mg CHEW TAB PO SCH ×2 (17:23→20:01)
[2020-06-14] MEDS ORDERED: Ipratropium HFA INHALER(NF) (ALTERNATIVE = NEBS) INH SCH (18:00)
[2020-06-14] MEDS ORDERED: Albuterol HFA INHALER 8 gm MDI INH SCH (18:00)
[2020-06-14] MEDS: Albuterol HFA INHALER 8 gm MDI INH SCH (22:31)
[2020-06-15] MEDS: Albuterol HFA INHALER 8 gm MDI INH SCH ×3 (00:15→07:30)
[2020-06-15 04:44] LABS: INR 1.8 (0.82-1.09)
[2020-06-15 04:54] LABS: Albumin 3.6 g/dL (3.2-5.2); Albumin/Globulin Ratio 1.2 (1-3); BUN/Creatinine Ratio 41.8 (8-20); Calcium 9.3 mg/dL (8.6-10.3); EGFR African American 46.2 (>60); EGFR Non-African American 38.2 (>60); Globulin 2.9 g/dL (2-4); Potassium 5.2 mmol/L (3.5-5.0); Total Bilirubin 1.1 mg/dL (0.2-1.0); Total Protein 6.5 g/dL (6.4-8.9)
[2020-06-15] MEDS ORDERED: Albuterol HFA INHALER 8 gm MDI INH PRN (07:21)
[2020-06-15 08:24] LABS: Digoxin 0.4 ng/ml (0.8-2.0)
[2020-06-15] MEDS: Sodium Citrate/Citric Acid LIQ 15 ML UDC PO SCH ×3 (08:42→22:30)
[2020-06-15] MEDS: Calcium Carb (TUMS) 500 mg CHEW TAB PO SCH ×3 (08:44→21:24)
[2020-06-15] MEDS: Dexamethasone IV 4 MG/ML VIAL 1 ml VIAL IV SLOW PU SCH (08:49)
[2020-06-15] MEDS: Triamcinolone 0.5% OINT 1 TUBE TOPICAL SCH ×2 (08:55→22:30)
[2020-06-15] MEDS: Remdesivir 100 mg Vial 100 MG in NS 0.9% 250 ml 230 ML IV SCH (09:55)
[2020-06-16 06:38] LABS: INR 1.87 (0.82-1.09)
[2020-06-16 06:45] LABS: ALT 31 U/L (7-52); AST 21 U/L (13-39); Albumin 3.6 g/dL (3.2-5.2); Albumin/Globulin Ratio 1.3 (1-3); Alkaline Phosphatase 99 U/L (34-104); BUN/Creatinine Ratio 39.2 (8-20); Blood Urea Nitrogen 67 mg/dL (6-24); CO2 Carbon Dioxide 18 mmol/L (22-32); Calcium 9.2 mg/dL (8.6-10.3); Chloride 106 mmol/L (101-111); EGFR African American 48.1 (>60); EGFR Non-African American 39.8 (>60); Globulin 2.8 g/dL (2-4); Glucose 130 mg/dL (70-100); Sodium 133 mmol/L (135-145); Total Protein 6.4 g/dL (6.4-8.9)
[2020-06-16 06:48] LABS: Anion Gap 9 mmol/L (2-11); Potassium 5.4 mmol/L (3.5-5.0)
[2020-06-16] MEDS ORDERED: Sodium Polystyrene ORAL.SUSP 15 GM/60 ML BTL PO ONE (07:54)
[2020-06-16] MEDS: Sodium Citrate/Citric Acid LIQ 15 ML UDC PO SCH ×3 (09:51→22:03)
[2020-06-16] MEDS: Calcium Carb (TUMS) 500 mg CHEW TAB PO SCH ×3 (09:54→22:03)
[2020-06-16] MEDS: Remdesivir 100 mg Vial 100 MG in NS 0.9% 250 ml 230 ML IV SCH (09:57)
[2020-06-16] MEDS: Dexamethasone IV 4 MG/ML VIAL 1 ml VIAL IV SLOW PU SCH (10:08)
[2020-06-16] MEDS: Triamcinolone 0.5% OINT 1 TUBE TOPICAL SCH ×2 (10:09→22:44)
[2020-06-16 11:20] LABS: % Iron Saturation 18 % (15-55); Iron 57 ug/dL (50-212); Total Iron Binding Capacity 309 mcg/dL (250-450); Transferrin 221 mg/dL (203-362); Unsaturated Iron Binding < 294 ug/dL
[2020-06-16 11:36] LABS: Folate 4.78 ng/mL (>3.99)
[2020-06-16 11:37] LABS: Vitamin B12 > 1450 pg/mL (180-914)
[2020-06-16 12:23] LABS: Ferritin 2111.1 ng/mL (24-336)
[2020-06-17 05:41] LABS: Hematocrit 30 % (42-52); Hemoglobin 9.5 g/dL (14.0-18.0); Mean Corpuscular HGB Conc 32 g/dL (31-36); Mean Corpuscular Hemoglobin 31 pg (27-31); Mean Corpuscular Volume 97 fL (80-94); Mean Platelet Volume 8.2 fL (7.4-10.4); Platelet Count 145 10^3/uL (150-450); Red Blood Count 3.07 10^6 /uL (4.18-5.48); Red Cell Distribution Width 21 % (10-15); White Blood Count 17.6 10^3/uL (3.5-10.8)
[2020-06-17 05:42] LABS: INR 1.87 (0.82-1.09)
[2020-06-17 05:56] LABS: Albumin 3.4 g/dL (3.2-5.2); Albumin/Globulin Ratio 1.3 (1-3); BUN/Creatinine Ratio 36.1 (8-20); Calcium 8.9 mg/dL (8.6-10.3); EGFR African American 53.9 (>60); EGFR Non-African American 44.5 (>60); Globulin 2.6 g/dL (2-4); Potassium 4.9 mmol/L (3.5-5.0); Total Bilirubin 1.3 mg/dL (0.2-1.0)
[2020-06-17 07:44] LABS: ABS Lymphocytes 0.4 10^3/ul (1.0-4.8); ABS Monocytes 2.8 10^3/ul (0-0.8); ABS Neutrophils 14.3 10^3/ul (1.5-7.7); ABS Nucleated RBC 0.1 10^3/ul; Eosinophil % 0.1 %; Lymphocyte % 2.1 %; Nucleated Red Blood Cells % 0.3
[2020-06-17 08:34] VITALS: BP 123/78
[2020-06-17] MEDS: Remdesivir 100 mg Vial 100 MG in NS 0.9% 250 ml 230 ML IV SCH (09:30)
[2020-06-17] MEDS: Dexamethasone IV 4 MG/ML VIAL 1 ml VIAL IV SLOW PU SCH (09:31)
[2020-06-17] MEDS: Sodium Citrate/Citric Acid LIQ 15 ML UDC PO SCH (09:38)
[2020-06-17] MEDS: Calcium Carb (TUMS) 500 mg CHEW TAB PO SCH (09:38)
[2020-06-21 12:36] LABS: Fibrinogen 650.1 mg/dL (110.8-404.3)
== END 2020-06-27 16:00 | disposition home health service (06) | DRG 177 ==
LOC: ED 11:16 → ICU 15:14 → MED 06-14 13:50 → ICU 06-14 18:47 → AA 06-15 15:49 → MED 06-15 15:49
PROVIDERS: ADMIT Internal Medicine Critical Care Medicine; ATTEND Student in an Organized Health Care Education/Training Program